=== PATIENT | female | born 1940 | race Caucasian/White ===

== ENCOUNTER → 2017-01-03 | Outpatient (CLI) | payer OTHER ==
[~2017-01-03] MED LIST: IOPAMIDOL (ISOVUE-300) 100 ML BTL IV ONE
== END ==
LOC: FIMAGING 08:33
PROVIDERS: ATTEND Internal Medicine Gastroenterology
DX: D37.8 Neoplasm of uncertain behavior of other specified digestive organs (principal); K86.2 Cyst of pancreas
CPT/HCPCS: 74178; Q9967

== ENCOUNTER → 2017-08-03 | Outpatient (CLI) | payer OTHER ==
[~2017-08-03] MED LIST changes: -IOPAMIDOL (ISOVUE-300) 100 ML BTL IV ONE; +IOPAMIDOL (ISOVUE-300) 100 ML BTL ONE
== END ==
LOC: FIMAGING 09:47
PROVIDERS: ATTEND Internal Medicine Gastroenterology
DX: K86.9 Disease of pancreas, unspecified (principal)
CPT/HCPCS: 74160; Q9967

== ENCOUNTER → 2017-08-10 | Outpatient (CLI) | payer OTHER | LOC: FIMAGING 09:34 | PROVIDERS: ATTEND Internal Medicine | DX: Z12.31 Encounter for screening mammogram for malignant neoplasm of breast (principal) | CPT/HCPCS: G0202 ==

== ENCOUNTER 2017-08-27 14:56 | Inpatient (IN) | payer OTHER ==
--- NOTE | 2017-08-27 15:09 | EDPHY ---
H & P Stated Complaint: headache and confusion Time Seen by Provider: 08/27/17 15:08 HPI/ROS: CHIEF COMPLAINT: Confusion HISTORY OF PRESENT ILLNESS: The patient presents to the ED with a 1 day history of confusion. The patient's ex- reports that she appears to have a expressive aphasia which is developed over the past day. The patient reportedly did fall and strike her head 2 weeks ago. She has had a right-sided headache since that time. The patient is not anticoagulated. The patient denies any focal numbness or weakness. The patient does have a history of diabetes. The patient denies any fever, cough or congestion. She does have chronic urinary incontinence. The patient is status post Botox injection her bladder approximately 3 weeks ago. She had been on Cipro several days postprocedure. REVIEW OF SYSTEMS: A comprehensive 10 point review of systems is otherwise negative aside from elements mentioned in the history of present illness. Source: Patient - Personal History Current Tetanus/Diphtheria Vaccine: Yes Current Tetanus Diphtheria and Acellular Pertussis (TDAP): Yes Tetanus Vaccine Date: 2009 - Medical/Surgical History Hx Asthma: No Hx Chronic Respiratory Disease: No Hx Diabetes: Yes Hx Cardiac Disease: No Hx Renal Disease: No Hx Cirrhosis: No Hx Alcoholism: No Hx HIV/AIDS: No Hx Splenectomy or Spleen Trauma: No - Social History Smoking Status: Never smoked - Physical Exam Exam: General Appearance: Alert, no distress Eyes: Pupils equal and round no pallor or injection ENT, Mouth: Mucous membranes moist Respiratory: There are no retractions, lungs are clear to auscultation Cardiovascular: Regular rate and rhythm Gastrointestinal: Abdomen is soft and nontender, no masses, bowel sounds normal Neurological: Alert and oriented x4, 5/5 strength all 4 extremities, questionable weakness noted in the right face, patient appears to have a mild expressive aphasia Skin: Warm and dry, no rashes Musculoskeletal: Neck is supple nontender Extremities: symmetrical, full range of motion Constitutional: Initial Vital Signs Temperature (C) 37 C 08/27/17 14:58 Heart Rate 79 08/27/17 14:58 Respiratory Rate 16 08/27/17 14:58 Blood Pressure 165/90 H 08/27/17 14:58 O2 Sat (%) 93 08/27/17 14:58 O2 Delivery Mode Room Air Allergies/Adverse Reactions: codeine [Codeine] Allergy (Unknown, Verified 09/22/09 08:46) UNK CUMIN Allergy (Uncoded 02/20/11 16:15) Anaphylaxis PETROS Allergy (Uncoded 02/20/11 16:14) Anaphylaxis NUTS Allergy (Uncoded 02/20/11 16:15) Anaphylaxis PAPYA Allergy (Uncoded 02/20/11 16:14) Anaphylaxis Home Medications: Medication Instructions Recorded Ciprofloxacin [Cipro 500 mg] 500 mg PO BID 7 Days tab 06/04/10 Coumadin 06/04/10 GABAPENTIN 06/04/10 GLYBURIDE 06/04/10 METFORMIN HCL 06/04/10 ONGLYZA 06/04/10 Percocet 06/04/10 Medical Decision Making - Diagnostics EKG Interpretation: EKG: Complete interpretation has been separately recorded in the [facility] archive. Summary impression: Sinus rhythm, rate 76 Imaging Results: Imaging Impressions Head CT 08/27/17 15:22 Impression: Senescent features, with no acute intracranial abnormality identified on this unenhanced CT evaluation. If there is further clinical concern regarding the patient's symptoms, MR imaging is suggested, if not otherwise contraindicated. Findings were discussed with Sim Persaud MD at 16:56, on 08/27/2017. Head CTA 08/27/17 15:22 Impression: 1. There is atherosclerotic calcific plaque involving the carotid bulbs and bifurcations, right greater than left; however, there is no hemodynamically significant ICA stenosis. 2. Patent vertebral arteries. CT ANGIOGRAPHY OF THE BRAIN: The major vessels of the [place] are well visualized, and there is no aneurysm, vascular malformation, flow-limiting stenosis, or acute occlusion identified. The distal cervical, petrous, cavernous , and supraclinoid portions of the internal carotid arteries are patent. There is atherosclerotic calcification associated with the parasellar portions of the internal carotid arteries. The A1 and A2 segments are patent as are the M1, M2, and M3 trifurcation vessels. With regards to the posterior circulation, the distal vertebral arteries are patent. The posterior inferior cerebellar arteries , vertebrobasilar confluence, basilar artery, superior cerebellar arteries, and the posterior cerebral arteries are patent. 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 There is limited assessment of the dural venous sinuses which are growth grossly unremarkable. Impression: 1. Atherosclerotic calcification associated with the parasellar portions of the internal carotid arteries. 2. There is no hemodynamically significant stenosis, intra-arterial thrombus, aneurysm, or vascular malformation identified. CT Source Data: The lung apices are clear. There is some minimal peribronchial thickening. The visualized superior mediastinal structures are unremarkable. There is moderately advanced degenerative disk space narrowing at C4-C5. There is also moderate right neural foraminal stenosis at this level secondary to uncovertebral degenerative spondylosis. The visualized prevertebral soft tissues are normal. There are some senescent features identified intracranially. Measurement of carotid stenosis is based on the residual internal carotid diameter with [place] Symptomatic Carotid Endarterectomy Trial (NASCET) based stenosis levels. Findings were discussed with Sim Persaud MD at 17:15, on 08/27/2017. Neck CTA 08/27/17 15:22 Impression: 1. There is atherosclerotic calcific plaque involving the carotid bulbs and bifurcations, right greater than left; however, there is no hemodynamically significant ICA stenosis. 2. Patent vertebral arteries. CT ANGIOGRAPHY OF THE BRAIN: The major vessels of the [place] are well visualized, and there is no aneurysm, vascular malformation, flow-limiting stenosis, or acute occlusion identified. The distal cervical, petrous, cavernous , and supraclinoid portions of the internal carotid arteries are patent. There is atherosclerotic calcification associated with the parasellar portions of the internal carotid arteries. The A1 and A2 segments are patent as are the M1, M2, and M3 trifurcation vessels. With regards to the posterior circulation, the distal vertebral arteries are patent. The posterior inferior cerebellar arteries , vertebrobasilar confluence, basilar artery, superior cerebellar arteries, and the posterior cerebral arteries are patent. 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 There is limited assessment of the dural venous sinuses which are growth grossly unremarkable. Impression: 1. Atherosclerotic calcification associated with the parasellar portions of the internal carotid arteries. 2. There is no hemodynamically significant stenosis, intra-arterial thrombus, aneurysm, or vascular malformation identified. CT Source Data: The lung apices are clear. There is some minimal peribronchial thickening. The visualized superior mediastinal structures are unremarkable. There is moderately advanced degenerative disk space narrowing at C4-C5. There is also moderate right neural foraminal stenosis at this level secondary to uncovertebral degenerative spondylosis. The visualized prevertebral soft tissues are normal. There are some senescent features identified intracranially. Measurement of carotid stenosis is based on the residual internal carotid diameter with [place] Symptomatic Carotid Endarterectomy Trial (NASCET) based stenosis levels. Findings were discussed with Sim Persaud MD at 17:15, on 08/27/2017. Brain MRI 08/27/17 16:30 Impression: Senescent features, with no MR evidence of an acute or subacute infarct. Findings were discussed with Sim Persaud MD at 18:15, on 08/27/2017. ED Course/Re-evaluation: The patient presents the ED with acute confusion and possible expressive aphasia. The patient was taken for noncontrast head CT scan given her history of fall and headache which demonstrates no evidence of hemorrhage or traumatic injury. Atrophy is noted. CTA of the head neck are normal. The patient's urinalysis does demonstrate pyuria. A urine culture has been obtained. The patient will be started on ceftriaxone. Given her neurologic complaints an MRI of the brain will be obtained to exclude an ischemic CVA. The patient has had symptoms for greater than 24 hr and does not a candidate for thrombolytics therapy. I do feel the patient should be admitted to the hospital given her abnormal mentation and possible aphasia. Consultation was made with Dr. Roger Whitt at 5:40 p.m. who will admit the patient. MRI of the brain is currently pending 6:30 p.m.: MRI of the brain demonstrates no evidence of an obvious stroke. The patient continues to have some mild word-finding difficulty. She is noted to be hyperglycemic without evidence of diabetic ketoacidosis. The patient will be admitted to the hospital and treated for her metabolic derangement and possible urinary tract infection. Differential Diagnosis: Differential diagnosis considered includes subdural hematoma, intracranial hemorrhage, ischemic stroke, hemorrhagic stroke, urinary tract infection, dehydration, medication side effect - Data Points Laboratory Results: Laboratory Results 08/27/17 15:15 08/27/17 15:15 08/27/17 08/27/17 08/27/17 15:40 15:15 15:15 WBC RBC Hgb POC Hgb 15.0 gm/dL gm/dL (12.6-16.3) Hct POC Hct 44 % % (38-47) MCV MCH MCHC RDW Plt Count MPV Neut % (Auto) Lymph % (Auto) Robertson % (Auto) Eos % (Auto) Baso % (Auto) Nucleat RBC Rel Count Absolute Neuts (auto) Absolute Lymphs (auto) Absolute Monos (auto) Absolute Eos (auto) Absolute Basos (auto) Absolute Nucleated RBC Immature Gran % Immature Gran # POC Sodium 137 mEq/L mEq/L (134-144) Sodium POC Potassium 4.2 mEq/L mEq/L (3.3-5.0) Potassium POC Chloride 100 mEq/L mEq/L (97-110) Chloride Carbon Dioxide Anion Gap POC BUN < 3 mg/dL L mg/dL (7-23) BUN Creatinine POC Creatinine 0.4 mg/dL L mg/dL (0.6-1.0) Estimated GFR Glucose POC Glucose 454 mg/dL H mg/dL (70-100) Calcium Total Bilirubin Pending Conjugated Bilirubin Pending Unconjugated Bilirubin Pending AST Pending ALT Pending Alkaline Phosphatase Pending Troponin I Pending Total Protein Pending Albumin Pending Procalcitonin Pending TSH Pending Urine Color YELLOW Urine Appearance MODERATELY TURBID Urine pH 7.0 (5.0-7.5) Ur Specific [place] 1.030 (1.002-1.030) Urine Protein NEGATIVE (NEGATIVE) Urine Ketones NEGATIVE (NEGATIVE) Urine Blood NEGATIVE (NEGATIVE) Urine Nitrate NEGATIVE (NEGATIVE) Urine Bilirubin NEGATIVE (NEGATIVE) Urine Urobilinogen NEGATIVE EU EU (0.2-1.0) Ur Leukocyte Esterase NEGATIVE (NEGATIVE) Urine RBC NONE SEEN /hpf /hpf (0-3) Urine WBC 15-25 /hpf H /hpf (0-3) Ur Epithelial Cells TRACE /lpf /lpf (NONE-1+) Urine Mucus TRACE /lpf /lpf (NONE-1+) Urine Yeast PRESENT /hpf /hpf (NONE SEEN) Urine Glucose 3+ H (NEGATIVE) 08/27/17 08/27/17 15:15 15:15 WBC 6.60 10^3/uL 10^3/uL (3.80-9.50) RBC 5.12 10^6/uL 10^6/uL (4.18-5.33) Hgb 14.6 g/dL g/dL (12.6-16.3) POC Hgb Hct 42.8 % % (38.0-47.0) POC Hct MCV 83.6 fL fL (81.5-99.8) MCH 28.5 pg pg (27.9-34.1) MCHC 34.1 g/dL g/dL (32.4-36.7) RDW 12.7 % % (11.5-15.2) Plt Count 281 10^3/uL 10^3/uL (150-400) MPV 10.1 fL fL (8.7-11.7) Neut % (Auto) 51.2 % % (39.3-74.2) Lymph % (Auto) 39.8 % % (15.0-45.0) Robertson % (Auto) 6.1 % % (4.5-13.0) Eos % (Auto) 1.8 % % (0.6-7.6) Baso % (Auto) 0.8 % % (0.3-1.7) Nucleat RBC Rel Count 0.0 % % (0.0-0.2) Absolute Neuts (auto) 3.38 10^3/uL 10^3/uL (1.70-6.50) Absolute Lymphs (auto) 2.63 10^3/uL 10^3/uL (1.00-3.00) Absolute Monos (auto) 0.40 10^3/uL 10^3/uL (0.30-0.80) Absolute Eos (auto) 0.12 10^3/uL 10^3/uL (0.03-0.40) Absolute Basos (auto) 0.05 10^3/uL 10^3/uL (0.02-0.10) Absolute Nucleated RBC 0.00 10^3/uL 10^3/uL (0-0.01) Immature Gran % 0.3 % % (0.0-1.1) Immature Gran # 0.02 10^3/uL 10^3/uL (0.00-0.10) POC Sodium Sodium 136 mEq/L mEq/L (134-144) POC Potassium Potassium 4.4 mEq/L mEq/L (3.5-5.2) POC Chloride Chloride 102 mEq/L mEq/L (97-110) Carbon Dioxide 24 mEq/l mEq/l (22-31) Anion Gap 10 mEq/L mEq/L (8-16) POC BUN BUN 3 mg/dL L mg/dL (7-23) Creatinine 0.5 mg/dL L mg/dL (0.6-1.0) POC Creatinine Estimated GFR > 60 Glucose 451 mg/dL H mg/dL (70-100) POC Glucose Calcium 9.0 mg/dL mg/dL (8.5-10.4) Total Bilirubin Conjugated Bilirubin Unconjugated Bilirubin AST ALT Alkaline Phosphatase Troponin I Total Protein Albumin Procalcitonin TSH Urine Color Urine Appearance Urine pH Ur Specific [place] Urine Protein Urine Ketones Urine Blood Urine Nitrate Urine Bilirubin Urine Urobilinogen Ur Leukocyte Esterase Urine RBC Urine WBC Ur Epithelial Cells Urine Mucus Urine Yeast Urine Glucose Medications Given: Discontinued Medications Ceftriaxone Sodium/Dextrose (Rocephin 1 Gm (Premix)) 50 mls @ 100 mls/hr IV EDNOW ONE PRN Reason: Protocol Stop: 08/27/17 17:52 Last Admin: 08/27/17 17:54 Dose: 50 mls Point of Care Test Results: 08/27/17 15:15 POC Sodium 137 POC Potassium 4.2 POC Chloride 100 POC BUN < 3 L POC Creatinine 0.4 L POC Glucose 454 H Departure - Departure Disposition: [facility] Inpatient Acute Clinical Impression: Hyperglycemia, Altered mental status, Pyuria Condition: Fair
[2017-08-27] MEDS ORDERED: IOPAMIDOL (ISOVUE 370) 100 ML BTL IV ONE (15:31)
[2017-08-27 15:42] LABS: PLATELET COUNT 281 10^3/uL (150-400)
--- NOTE | 2017-08-27 15:45 | CPEKG ---
Heart Rate: 76 RR Interval: 789 P-R Interval: 168 QRSD Interval: 82 QT Interval: 392 QTC Interval: 441 P [place]: 65 QRS [place]: 26 T Wave [place]: 50 EKG Severity - ABNORMAL ECG - EKG Impression: SINUS RHYTHM EKG Impression: CONSIDER LEFT VENTRICULAR HYPERTROPHY Electronically Signed By: Sim Persaud 27-Aug-2017 16:07:07
[2017-08-27] MEDS ORDERED: D50W 25 GM/50 ML SYR IVP PRN (18:07)
[2017-08-27] MEDS ORDERED: ACETAMINOPHEN 325 MG TAB PO PRN (18:20)
[2017-08-27] MEDS ORDERED: LISINOPRIL 10 MG TAB PO SCH (18:30)
[2017-08-27] MEDS: 1/2 NS 1,000 ML IV SCH (18:44)
--- NOTE | 2017-08-27 18:55 | GHP ---
[f rep st] HISTORY AND PHYSICAL DATE OF ADMISSION: 08/27/2017 CHIEF COMPLAINT: Confusion. HISTORY OF PRESENT ILLNESS: This is a 77-year-old female, brought in by her ex- for confusion . This has probably been going on for a few weeks as she is planning on moving to [place] soon, clementsmadina lazaro, got acutely worse in the last day. They called her PCP, Dr. Daley, who recommended that s he present to the emergency department. She currently has some questionable chest pain though her hi story on this seems somewhat unreliable. Recent history notable for having some incontinence. She r eceived a Botox injection by Dr. Pacheco 2 weeks ago for which she received perioperative ciprofloxacin . Her blood pressure is higher than normal. It is unclear if she has been taking her antihypertensi ve, she may be on lisinopril. She believes that she did not take any of her antihyperglycemics this morning. She fell about 2 weeks ago, hit her head, is saying that she has pain in her leg as well as her arm. She has not been taking any narcotic pain medicines for the last 6 years. She is not coug brina, has no other shortness of breath. She still does have some urinary incontinence. PAST MEDICAL/SURGICAL HISTORY: 1. Diabetes mellitus type 2. 2. Hypertension. 3. Varicose veins. 4. Hysterectomy. 5. Bladder suspension. 6. Botox bladder injection. MEDICATIONS: Please see medication reconciliation. ALLERGIES: Codeine, Coumadin, shannon, nuts, and papaya. FAMILY HISTORY: Reviewed and noncontributory. SOCIAL HISTORY: She is accompanied by her ex-. She is moving to [place]. 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 REVIEW OF SYSTEMS: A 10-point review of systems is conducted and is negative except per HPI. PHYSICAL EXAMINATION: VITAL SIGNS: Blood pressure 182/91, heart rate 80, respiration rate 16, satur ating 96% on room air. Temperature is 36.7. GENERAL: The patient is a very pleasant female who is comfortable, resting, in no acute distress. HEENT: Shows her to be normocephalic, atraumatic. CARD IOVASCULAR: A regular rate and rhythm. No murmurs, rubs, or gallops. PULMONARY: Lungs clear to au scultation bilaterally. ABDOMEN: Soft, nontender, nondistended. SKIN: No rash. : No Hernandez. E XTREMITIES: No joint effusions. NEUROLOGIC: Shows her to be alert and oriented x3. She has some s low word finding difficulties though she is able to complete a short sentence with some prompting. S he has 5/5 motor in her upper and her lower extremities. Sensation to light touch is intact in the u pper and lower extremities. PSYCHIATRIC: A normal mood and affect. LABS: CBC is normal. Basic metabolic panel is normal. LFTs are normal. Troponin is pending. Proc alcitonin is pending. TSH is pending. Urinalysis shows 15-25 whites with 3+ glucose. DATA: 1. I discussed with Dr. Persaud. Will admit to med/surg. 2. I reviewed her brain MRI. This shows senescent features with nothing acute. 3. EKG, which I personally reviewed and interpreted, shows sinus rhythm. She has slow R-wave progre ssion. She has Q-waves in lead V1. There is nothing that appears acutely ischemic to me. 4. The head and neck CT angiogram shows atherosclerotic plaque. Arteries are patent. 5. Head CT which was done as a noncontrast study shows nothing acute. IMPRESSION AND PLAN: 1. Acute encephalopathy: I suspect that there is a chronic component. MRI imaging negative except for senescent features. Differential includes urinary tract infection, hypertensive, hyperglycemic. Given her urinary symptoms, will go ahead and treat urinary tract infection. I will treat her hyper tension as below, treat hyperglycemia as below. Also will check troponin given slow R-wave progressi on. I have requested blood cultures as well and a TSH. 2. Uncontrolled hypertension: She believes she is on lisinopril. Med rec is pending. I will give her a low dose of lisinopril now and follow this. 3. Diabetes with hyperglycemia: Will continue her oral antihyperglycemics, give her sliding scale. Will follow her sugars and attempt to correct these. 4. Possible urinary tract infection: Continue Rocephin. Check a procalcitonin. /[id number]/MODL
[2017-08-27] MEDS ORDERED: INSULIN GLARGINE 100 UNITS/ML SYRINGE SC SCH (21:00)
[2017-08-27] MEDS ORDERED: INSULIN LISPRO 100 UNIT/ML SC ONE (21:54)
[2017-08-28] MEDS ORDERED: INSULIN GLULISINE 15 UNIT SQ SCH (08:00)
[2017-08-28] MEDS: 1/2 NS 1,000 ML IV SCH (08:14)
[2017-08-28] MEDS: ENOXAPARIN 40 MG/0.4 ML SYR SC SCH (08:48)
[2017-08-28] MEDS: LISINOPRIL 20 MG TAB PO SCH (08:49)
[2017-08-28] MEDS: ATORVASTATIN CALCIUM 20 MG TAB PO SCH (08:49)
[2017-08-28] MEDS: ASPIRIN 325 MG TAB PO SCH (08:49)
[2017-08-28] MEDS: INSULIN LISPRO 100 UNIT/ML SC SCH ×3 (08:53→17:48)
--- NOTE | 2017-08-28 16:14 | SOAPPROG ---
SOAP Progress Note Assessment/Plan: acute encephalopathy (neg mri/CT/CTA for acute issues, some atherosclerosis/age changes) -at baseline per ex this AM -concern from staff re safety at home still (see PT/OT evals) -ucx with yeast, no bacteria but improved with abx, so suggest continue x 3- 5 days -diflucan ordered -bd cx pending -re-eval in AM, likely home with HHC as refusing SNF/rehab at this point -CM assisting also Type 2 DM -high glucoses, covering with SSI, increase to standard -increase lantus -holding metformin bc of recent imaging studies decreased mobility/instability -revwd pt/ot recs -see above FULL CODE DISPO- likely discharge in AM PCP-Edi Warren Subjective: Says feels 'better/back to normal' and ex agrees. Can't remember much of yesterday. No CP/SOB/MEHTA/abd pain. No recent fever/illness. Objective: Vital Signs Temp Pulse Resp BP Pulse Ox 97.6 F 80 17 136/65 H 95 08/28/17 15:15 08/28/17 15:15 08/28/17 15:15 08/28/17 15:15 08/28/17 15:15 Laboratory Results 08/28/17 09:12 08/28/17 12:25 08/27/17 08/28/17 08/29/17 11:59 11:59 11:59 Intake Total 100 Balance 100 - Time Spent With Patient Time Spent With Patient: 45 - Pending Discharge Pending Discharge Within 24 Hours: Yes Pending Discharge Date: 08/29/17 Pending Discharge Time: 11:00 Physical Exam - Physical Exam General Appearance: alert, no apparent distress Respiratory: lungs clear, normal breath sounds, No respiratory distress Cardiac/Chest: regular rate, rhythm, No edema Abdomen: non-tender, soft, No distended, No guarding Skin: warm/dry Neuro/Psych: alert, normal mood/affect, cognition abnormalities (somewhat tangential, but also very anxious to go home, 'lots of appts/things to do'), No speech abnormalities ICD10 Worksheet Patient Problems: Problems Problem Status Onset Altered mental status Acute Hyperglycemia Acute Pyuria Acute
[2017-08-28] MEDS: FLUCONAZOLE 100 MG TAB PO SCH (16:29)
--- NOTE | 2017-08-28 16:39 | ASMTCASEMG ---
Living Arrangements What is your living Answers: Alone arrangement? Who do you live with? Type Of Residence What kind of residence do Answers: House you live in? Discharge Plan Comments Coordination Status Comments Notes: Pt is a 77 y/o female admitted for AMS and after having more falls. CM met w/ pt for dispo planning. Pt reports that her ex Luis is very supportive. Pt reports that the plan is for her to eventually transfer to [place] because she doesn't want to burden Luis. CM met w/ Luis and spoke w/ him. OT is recommending SNf. PT is recommending HC. Pt reports that she is not interested in a SNF but agreeable to HC. Pt does not have a preference for HC as long as it is covered under her [employer]. [facility] is able to accept. Zarina from [facility] called pt and she reports that she is not interested in HC at this time. CM requested that Zarina call pts ex to speak to him. CM to follow. Plan: HC; PT/OT Date Signed: 08/28/2017 04:39 PM Electronically Signed By:MARII Dixon
[2017-08-28] MEDS ORDERED: INSULIN GLARGINE 100 UNITS/ML SYRINGE SC SCH (18:27)
[2017-08-28 22:55] VITALS: RESP 16
[2017-08-29] MEDS: INSULIN LISPRO 100 UNIT/ML SC SCH ×2 (07:49→12:17)
--- NOTE | 2017-08-29 08:09 | HOSPPROG ---
Hospitalist Progress Note Assessment/Plan: #Acute on chronic encephalopathy -resolved. Likely due to hyperglycemia. CT, MRI negative #Uncontrolled DM: increased glargine to 50units. Spoke with PCP and likely not compliant with insulin at home. 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 Has PCP appt this afternoon Subjective: no fever, dysuria Objective: Vital Signs Temp Pulse Resp BP Pulse Ox 36.6 C 78 16 144/80 H 96 08/29/17 07:40 08/29/17 07:40 08/29/17 07:40 08/29/17 07:40 08/29/17 07:40 Laboratory Results 08/29/17 04:38 08/28/17 08/29/17 08/30/17 05:59 05:59 05:59 Intake Total 1450 Balance 1450 - Physical Exam Constitutional: no apparent distress, obese Eyes: PERRL Ears, Nose, Mouth, Throat: moist mucous membranes Cardiovascular: regular rate and rhythym Respiratory: no respiratory distress, no rales or rhonchi Gastrointestinal: normoactive bowel sounds, soft, non-tender abdomen Genitourinary: no bladder fullness Skin: warm Musculoskeletal: full muscle strength Neurologic: AAOx3, CN II-XII Intact Psychiatric: interacting appropriately ICD10 Worksheet Patient Problems: Problems Problem Status Onset Altered mental status Acute Hyperglycemia Acute Pyuria Acute
[2017-08-29] MEDS: ENOXAPARIN 40 MG/0.4 ML SYR SC SCH (09:07)
[2017-08-29] MEDS: ASPIRIN 325 MG TAB PO SCH (09:08)
[2017-08-29] MEDS: LISINOPRIL 20 MG TAB PO SCH (09:08)
[2017-08-29] MEDS: ATORVASTATIN CALCIUM 20 MG TAB PO SCH (09:08)
[2017-08-29] MEDS: FLUCONAZOLE 100 MG TAB PO SCH (09:10)
[2017-08-29 12:07] VITALS: BP 130/69; PULSE 75; TEMP 98; O2SAT 75
--- NOTE | 2017-08-29 14:23 | GDS ---
[f rep st] DISCHARGE SUMMARY DISCHARGE DIAGNOSES: 1. Acute on possible chronic encephalopathy. 2. Uncontrolled diabetes. 3. Decreased mobility. 4. Pancreatic mass HISTORY OF PRESENT ILLNESS: A 77-year-old female with history of diabetes on insulin, hypertension, was brought in by her ex- with acute confusion. Sounds like this confusion has been gradual for the past few weeks, and was planning on moving to [place] soon; however, it was significantly worse the day prior to admission. They called her PCP, Dr. Daley, who recommended she come to the ER. She had some questionable chest pain, but her history was unreliable. She received a Botox injection by Dr. Pacheco 2 weeks ago for urinary incontinence, and she received perioperative ciprofloxacin. Her blood pressure has been higher than normal. Did not take her insulin the morning of arrival. She fell 2 weeks ago and hit her head. She is not on narcotics. She does have difficulty seeing, and she is unclear if she has actually dosing her glargine correctly. HOSPITAL COURSE BY PROBLEM: 1. Acute suspected chronic encephalopathy: had extensive evaluation here including negative EKG, troponin. CTA and MRI brain are unrevealing. UA was positive only for Mattie. She was hyperglycemic and hypertensive at admission , which may have contributed. TSH was normal. Per her ex-, she is at her baseline. 2. Uncontrolled diabetes, sugars greater than 400 here. Again, she has difficulty seeing and is unclear of her home dosing. She has had lows in the past, but none recently. I expressed the importance of having home health or pre-drawn syringes to avoid medication error. I stressed to both she and her ex - that they need to talk to Dr. Daley about this issue. I did increase glargine to 50 units at night. 3. Deconditioning. She is stable for discharge per Physical Therapy. Recommend home care, but she is declining these services. Again, she needs to talk to Dr. Daley, as I think she would benefit from as much assistance at home as possible. 4. Pancreatic mass: being followed by Dr. Mccoy and surgeon in [place] [employer]. Monitoring with serial scans; would not likely recover from surgery 5. Goals: I spoke with her PCP, Dr. Daley who states it has been very difficult to manage her medical issues, because she is not compliant with meds. Family has tried to arrange home care and she refuses. They are trying to arrange placement with more care, but she has been refusing. NEW MEDICATIONS: Increase glargine to 50 units at night. FOLLOW UP: 1. Dr. Daley. 2. Consider home care nurse or PT. Time spent on DC: 60 min counseling patient and on treatment plan and discussing case with her PCP. /[id number]/MODL MTDD
--- NOTE | 2017-08-29 16:25 | ASMTCMCOM ---
CM Note CM Note Notes: Dc order received. Spoke with RN; recommending HHC RN for med management, as well as PT/OT. Met with pt & her former spouse, Luis ([phone]), to discuss. Pt refuses HHC. States she "has too much going on;" discussed benefits of HHC at length; pt still refuses. CM available if changes/needs. Date Signed: 08/29/2017 04:25 PM Electronically Signed By:Christa Peralta RN
--- NOTE | 2017-08-29 18:48 | PDMN ---
Medical Necessity Medical necessity: Patient transitioned to inpatient status for acute encephalopathy w/likely some chronic component plus acute Mattie UTI. LOS will be > 2 midnights for ongoing IV antibiotics, PT/OT.
== END 2017-08-29 14:15 | disposition home or self-care (01) | DRG 72 ==
LOC: F3E 18:30 → OBSVTOIN 08-28 16:24
PROVIDERS: ADMIT Student in an Organized Health Care Education/Training Program; ATTEND Student in an Organized Health Care Education/Training Program
DX: G93.40 Encephalopathy, unspecified (principal); E11.65 Type 2 diabetes mellitus with hyperglycemia; Z79.4 Long term (current) use of insulin; I10 Essential (primary) hypertension; K86.9 Disease of pancreas, unspecified; R32 Unspecified urinary incontinence; Z91.81 History of falling
CPT/HCPCS: 82947-QW; 97116-GP; 97161-GP; 97166-GO; G0378; J0696; J1650; J1815; Q9967

== ENCOUNTER → 2018-02-05 | Outpatient (CLI) | payer OTHER | LOC: CIMAGING 11:11 | PROVIDERS: ATTEND Internal Medicine Gastroenterology | DX: D37.8 Neoplasm of uncertain behavior of other specified digestive organs (principal) | CPT/HCPCS: 74177-PO; 82565-PO ==

== ENCOUNTER 2018-04-13 | Emergency (ER) | payer OTHER | END 2018-04-13 08:50 | disposition home or self-care (01) | DX: R32 Unspecified urinary incontinence (principal); Z87.440 Personal history of urinary (tract) infections; E11.9 Type 2 diabetes mellitus without complications; I10 Essential (primary) hypertension ==

== ENCOUNTER 2018-05-07 19:32 | Observation (INO) | payer OTHER ==
[2018-05-07] MEDS ORDERED: NS 500 ML IV ONE (19:42)
[2018-05-07] MEDS ORDERED: ONDANSETRON 4 MG/2 ML VIAL IVP ONE (20:19)
[2018-05-07] MEDS ORDERED: NS 1,000 ML IV ONE (20:19)
[2018-05-07] MEDS ORDERED: INSULIN REGULAR HUMAN 100 UNIT, COSIGN. REQUIRED 1 EA in NS 100 ML IV ONE (20:45)
--- NOTE | 2018-05-07 20:47 | EDPHY ---
H & P Stated Complaint: Diarrhea, altered LOC x 3days Time Seen by Provider: 05/07/18 19:41 HPI/ROS: This patient has a 2 day history of diarrhea with 3 bouts of loose watery stools yesterday and 2 bouts today. She took a dose of Imodium at around noon today and has not had any stool since that time. She also has a history of urinary incontinence and UTIs followed by Dr. Pacheco of Urology with Botox injections to treat urinary continence without improvement significant improvement per her ex- who assists with history. She takes Macrobid 100 mg once a day for frequent or chronic UTIs. She was recently started on Lantus insulin in addition to her metformin to try to control her diabetes as she had been running blood sugars as high as 400 at times but then down to 150s for other parts of the day. Tonight she vomited after dinner after poor appetite earlier in the day. She has ongoing mild nausea currently. Her ex- who accompanies her elsy also feels that her mentation is more sluggish than usual over the past 24 hr. He drove her here by private vehicle for evaluation of the symptoms. ROS: Constitutional: No fevers. HEENT: No recent URI symptoms. Neuro: She denies headache or focal neuro complaints. Pulmonary: No cough shortness of breath Cardiovascular: She did notice chest pain, palpitations or lightheadedness. GI: For over a month she has had intermittent fleeting sharp suprapubic pains last for about 30 sec at a time then resolved. No hematemesis. No bloody stools dark tarry stools or significant mucus in her stools. Integumentary: No skin rash or pallor Endocrine: Positive polyuria and polydipsia 10 point review of symptoms is performed and otherwise negative with exception of pertinent positives and negatives listed in HPI and ROS Source: Patient, Family (Patient's ex who cares for her provides details of history.) Exam Limitations: Other (Patient seems to have some baseline dementia and is slow to respond but answers questions appropriately.) - Personal History Current Tetanus/Diphtheria Vaccine: Yes Current Tetanus Diphtheria and Acellular Pertussis (TDAP): Yes Tetanus Vaccine Date: within 10 years - Medical/Surgical History Hx Asthma: No Hx Chronic Respiratory Disease: No Hx Diabetes: Yes Hx Cardiac Disease: No Hx Renal Disease: No Hx Cirrhosis: No Hx Alcoholism: No Hx HIV/AIDS: No Hx Splenectomy or Spleen Trauma: No Other PMH: diabetes type II, varicose veins, hysterectomy, bladder suspension, urinary incontinence s/p botox bladder injection (07/2017), fall related to hyperglycemia(07/2017), Pt denies HTN, "severe surgery with paralysis" 2009 - Social History Smoking Status: Never smoked Alcohol Use: Occasionally (Wine none recently) Drug Use: None - Physical Exam Exam: General Appearance: Pleasant elderly female Alert, no distress. Eyes: Pupils equal and round no pallor or injection. ENT, Mouth: Mucous membranes dry. I do not appreciate any free deep breath. Oropharynx reveals no erythema or exudates. No dysphonia. Respiratory: There are no retractions, lungs are clear to auscultation. Cardiovascular: Regular rate and rhythm. No murmur gallop or rub Gastrointestinal: Normoactive soft, positive suprapubic tenderness Back: Bilateral paraspinous muscular tenderness versus CVA tenderness the seems more consistent with muscular tenderness on exam. No midline tenderness. Neurological: GCS 15 no she is slow to respond to questions she seems to answer simple questions appropriately though she wonders a bit with her history. Skin: Warm and dry, no rashes. Musculoskeletal: Neck is supple nontender. Extremities are symmetrical, full range of motion. Psychiatric: Flat affect. Otherwise normal mood. Cooperative DIFFERENTIAL DIAGNOSIS: After history and physical exam differential diagnosis was considered for viral gastroenteritis, dehydration, UTI-cystitis versus pyelonephritis, myocardial ischemic disease, antibiotic associated diarrhea, C diff Constitutional: Initial Vital Signs Temperature (C) 37.3 C 05/07/18 19:45 Heart Rate 98 05/07/18 19:45 Respiratory Rate 16 05/07/18 19:45 Blood Pressure 192/96 H 05/07/18 19:45 O2 Sat (%) 93 05/07/18 19:45 O2 Delivery Mode Nasal Cannula O2 (L/minute) 2 Allergies/Adverse Reactions: codeine [Codeine] Allergy (Verified 04/13/18 07:44) Pt unsure of reaction fluorescein Allergy (Verified 04/13/18 07:44) Pt reports eye swelling papaya Allergy (Verified 04/13/18 07:44) Pt reports anaphylaxis CUMIN Allergy (Uncoded 04/13/18 07:44) Pt repors Anaphylaxis PETROS Allergy (Uncoded 04/13/18 07:44) Pt reports Anaphylaxis NUTS Allergy (Uncoded 04/13/18 07:44) Pt reports Anaphylaxis Home Medications: Medication Instructions Recorded Aspirin [Aspirin 325 mg (*)] 08/27/17 Cholecalciferol Vit D3 [Vitamin D3 08/27/17 (*)] Lisinopril [Zestril 20 mg (*)] 08/27/17 [place]-3 Fatty Acids [Fish Oil 1000 08/27/17 mg (*)] Simvastatin [Zocor] 08/27/17 metFORMIN HCL [Glucophage 1000 mg] 08/27/17 Insulin Glargine [Lantus 100 04/13/18 UNITS/ML (*)] Medical Decision Making - Diagnostics EKG Interpretation: 12 lead EKG performed at 8:25 p.m. Indication nausea vomiting question myocardial ischemia Sinus rhythm at 98 Intervals: Normal throughout [place]: P of 84, QRS of 35, T [address] segments: Normal throughout Overall assessment: sinus rhythm Imaging Results: Two view chest x-ray: No acute abnormalities by my interpretation Imaging: I viewed and interpreted images myself ED Course/Re-evaluation: IV normal saline bolus Zofran IV with resolution of nausea I ordered an insulin drip for the patient but apparently the insulin is currently out of stock. Stat enrollment clerk called to deliver insulin. We also called EMS to transfer the patient to [facility] I spoke with Dr. Oliverio Dacosta who accepts the patient. I also spoke with Dr. Fontenot who will be the admitting hospitalist she will be admitted to the ICU on her insulin drip. Patient started on insulin drip at 0.1 per kg per hour and will continue this insulin drip Discussion: Patient has significant hyperglycemia and mild change in mentation without ketosis on her breath or ketones in her urine and with a normal bicarb. Beta hydroxybutyrate in serum osmoles are pending, but I suspect that she has hyperglycemic hyperosmolar syndrome given her significant hyperglycemia and mild decreased mentation likely triggered by viral illness and/or UTI. No significant electrolyte abnormalities appreciated on her point of care tests. No evidence of pneumonia on her chest x-ray. Patient remained hemodynamically stable while here in the emergency department. I counseled the patient and her regarding her diagnosis and the treatment plan and some detail answered all their questions prior to her transfer Bedside critical care time: 20 min - Data Points Laboratory Results: Laboratory Results 05/07/18 20:02 05/07/18 05/07/18 05/07/18 22:16 21:08 20:20 WBC RBC Hgb Hct MCV MCH MCHC RDW Plt Count MPV Neut % (Auto) Lymph % (Auto) [place] % (Auto) Eos % (Auto) Baso % (Auto) Nucleat RBC Rel Count Absolute Neuts (auto) Absolute Lymphs (auto) Absolute Monos (auto) Absolute Eos (auto) Absolute Basos (auto) Absolute Nucleated RBC Immature Gran % Immature Gran # POC Blood Source VENOUS Patient Temperature 37.3 DEGREES DEGREES POC VBG pH 7.54 H (7.31-7.42) POC VBG pCO2 28 mmHg L mmHg (40-44) POC VBG pO2 51 mmHg H mmHg (35-40) POC VBG HCO3 24 mEq/L mEq/L (22-26) POC VBG Total CO2 25 mEq/L mEq/L (21-27) POC VBG Base Excess 2.0 mEq/L mEq/L (-2.5-2.5) POC Mix VBG O2 Sat 90 % H % (65-75) POC Sodium 140 mEq/L mEq/L (135-145) POC Potassium 4.3 mEq/L mEq/L (3.3-5.0) POC Chloride 93.0 mEq/L L mEq/L (97-110) POC Total CO2 27 mEq/L mEq/L (22-31) POC BUN 14 mg/dL mg/dL (7-23) POC Creatinine 0.3 mg/dL L mg/dL (0.6-1.0) POC Glucose 500 mg/dL H mg/dL 637 mg/dL H* mg/dL (70-100) (70-100) POC Lactic Acid Manjinder 2.3 mmol/L H mmol/L (0.7-2.1) POC Calcium 9.9 mg/dL mg/dL (8.5-10.4) 05/07/18 20:02 WBC 10.48 10^3/uL H 10^3/uL (3.80-9.50) RBC 4.72 10^6/uL 10^6/uL (4.18-5.33) Hgb 13.1 g/dL g/dL (12.6-16.3) Hct 38.8 % % (38.0-47.0) MCV 82.2 fL fL (81.5-99.8) MCH 27.8 pg L pg (27.9-34.1) MCHC 33.8 g/dL g/dL (32.4-36.7) RDW 12.1 % % (11.5-15.2) Plt Count 319 10^3/uL 10^3/uL (150-400) MPV 10.0 fL fL (8.7-11.7) Neut % (Auto) 81.6 % H % (39.3-74.2) Lymph % (Auto) 12.6 % L % (15.0-45.0) [place] % (Auto) 4.9 % % (4.5-13.0) Eos % (Auto) 0.2 % L % (0.6-7.6) Baso % (Auto) 0.4 % % (0.3-1.7) Nucleat RBC Rel Count 0.0 % % (0.0-0.2) Absolute Neuts (auto) 8.56 10^3/uL H 10^3/uL (1.70-6.50) Absolute Lymphs (auto) 1.32 10^3/uL 10^3/uL (1.00-3.00) Absolute Monos (auto) 0.51 10^3/uL 10^3/uL (0.30-0.80) Absolute Eos (auto) 0.02 10^3/uL L 10^3/uL (0.03-0.40) Absolute Basos (auto) 0.04 10^3/uL 10^3/uL (0.02-0.10) Absolute Nucleated RBC 0.00 10^3/uL 10^3/uL (0-0.01) Immature Gran % 0.3 % % (0.0-1.1) Immature Gran # 0.03 10^3/uL 10^3/uL (0.00-0.10) POC Blood Source Patient Temperature POC VBG pH POC VBG pCO2 POC VBG pO2 POC VBG HCO3 POC VBG Total CO2 POC VBG Base Excess POC Mix VBG O2 Sat POC Sodium POC Potassium POC Chloride POC Total CO2 POC BUN POC Creatinine POC Glucose POC Lactic Acid Manjinder POC Calcium Venous lactate is mildly elevated 2.3 Urine dip results showed no ketones. Trace leuks and trace blood. Negative nitrates no other positive findings. Medications Given: Discontinued Medications Sodium Chloride (Ns) 500 mls @ 0 mls/hr IV ONCE ONE; Wide Open PRN Reason: Protocol Stop: 05/07/18 19:43 Last Admin: 05/07/18 19:56 Dose: 500 mls Sodium Chloride (Ns) 1,000 mls @ 0 mls/hr IV ONCE ONE; Wide Open PRN Reason: Protocol Stop: 05/07/18 20:20 Last Admin: 05/07/18 20:47 Dose: 1,000 mls Insulin Human Regular 100 unit / Miscellaneous Medication 1 ea/ Sodium Chloride 101 mls @ 0 mls/hr IV EDNOW ONE; Per Protocol PRN Reason: Protocol Stop: 05/07/18 20:46 Last Admin: 05/07/18 22:32 Dose: 101 mls Ondansetron HCl (Zofran) 4 mg IVP EDNOW ONE Stop: 05/07/18 20:20 Last Admin: 05/07/18 20:56 Dose: 4 mg Point of Care Test Results: Chemistry 05/07/18 05/07/18 22:16 20:20 POC Sodium 140 mEq/L mEq/L (135-145) POC Potassium 4.3 mEq/L mEq/L (3.3-5.0) POC Chloride 93.0 mEq/L L mEq/L (97-110) POC Total CO2 27 mEq/L mEq/L (22-31) POC BUN 14 mg/dL mg/dL (7-23) POC Creatinine 0.3 mg/dL L mg/dL (0.6-1.0) POC Glucose 500 mg/dL H mg/dL 637 mg/dL H* mg/dL (70-100) (70-100) POC Calcium 9.9 mg/dL mg/dL (8.5-10.4) Blood Gas/Lactic Acid-Arterial 05/07/18 21:08 POC Blood Source VENOUS Blood Gas/Lactic Acid-Venous 05/07/18 21:08 POC VBG pH 7.54 H (7.31-7.42) POC VBG pCO2 28 mmHg L mmHg (40-44) POC VBG pO2 51 mmHg H mmHg (35-40) POC VBG HCO3 24 mEq/L mEq/L (22-26) POC VBG Total CO2 25 mEq/L mEq/L (21-27) POC VBG Base Excess 2.0 mEq/L mEq/L (-2.5-2.5) POC Mix VBG O2 Sat 90 % H % (65-75) POC Lactic Acid Manjinder 2.3 mmol/L H mmol/L (0.7-2.1) Urine Dip Collection Date 05/07/18 Collection Time 20:02 Specific [place] (1.002-1.030) 1.010 PH (5.0-7.5) 7.5 Leukocytes (Negative) Trace Nitrites (Negative) Negative Protein (Negative) Negative Glucose (Negative) 3+ Ketones (Negative) Negative Urobilnogen (0.2-1.0 EU) 0.2 Bilirubin (Negative) Negative Blood (Negative) Trace Departure - Departure Disposition: [facility] Inpatient Acute Clinical Impression: hyperglycemic hyperosmolar syndrome Vomiting Qualifiers: Vomiting type: unspecified Vomiting Intractability: non-intractable Nausea presence: with nausea Qualified Code(s): R11.2 - Nausea with vomiting, unspecified Diarrhea Qualifiers: Diarrhea type: unspecified type Qualified Code(s): R19.7 - Diarrhea, unspecified Clinical Impression: (Ruled Out): DKA (diabetic ketoacidoses) Condition: Serious Referrals: Ady Daley MD [Primary Care Provider] - As per Instructions
--- NOTE | 2018-05-07 21:59 | CPEKG ---
Test Reason : OPEN Blood Pressure : / mmHG Vent. Rate : 098 BPM Atrial Rate : 099 BPM P-R Int : 184 ms QRS Dur : 085 ms QT Int : 339 ms P-R-T Axes : 084 035 035 degrees QTc Int : 433 ms Sinus rhythm Probable left atrial enlargement Confirmed by Manuel Power ([id number]) on 05/07/2018 9:58:49 PM Referred By: Confirmed By:Manuel Power
[2018-05-07 22:07] LABS: PLATELET COUNT 319 10^3/uL (150-400)
[2018-05-07] MEDS ORDERED: NS 100 ML BAG IV ONE (22:17)
[2018-05-07] MEDS ORDERED: ONDANSETRON 4 MG/2 ML VIAL IVP PRN (22:51)
[2018-05-07] MEDS ORDERED: ONDANSETRON DISINTEGRATING 4 MG TAB PO PRN (22:51)
[2018-05-07] MEDS ORDERED: D50W 25 GM/50 ML SYR IVP PRN (22:54)
[2018-05-07] MEDS ORDERED: NS 1,000 ML IV SCH (23:00)
[2018-05-07] MEDS ORDERED: D5W 1,000 ML IV SCH (23:45)
[2018-05-07] MEDS ORDERED: INSULIN REGULAR HUMAN 100 UNIT in NS 100 ML IV SCH (23:45)
--- NOTE | 2018-05-08 00:38 | PDGENHP ---
History and Physical - Chief Complaint Confusion - History of Present Illness 77 yo F w/ hx of IDDM, HTN, and pancreatic mass presents with altered mental status. Her ex- tells me that she has been somewhat confused for about 2 days. In addition, her baseline urinary incontinence has worsened significantly. Also, she has had 3 loose bowel movements over the last day. She denies any other infectious symptoms such as fever, sore throat, cough, abdominal pain, and dysuria. Upon arrival to the [facility] her BG was noted to be >600. Patient tells me she has been feeling very thirsty as well. Despite this she wells currently and denies any pain or other concerns. She is A&Ox2 to person and place on my evaluation. Her mentation is sluggish and her memory is mildly impaired. For diabetes management, which has been historically difficult for her, she uses Metformin twice daily and insulin degludec 32 units each afternoon. She was previously on a continuous glucose monitor but this was recently discontinued for unclear reasons. She was placed on an insulin gtt at the [facility] and transferred to [facility] for further management. Case discussed with ED physician Dr. Power, records reviewed in EMR. History Information - Allergies/Home Medication List Allergies/Adverse Reactions: codeine [Codeine] Allergy (Verified 04/13/18 07:44) Pt unsure of reaction fluorescein Allergy (Verified 04/13/18 07:44) Pt reports eye swelling papaya Allergy (Verified 04/13/18 07:44) Pt reports anaphylaxis CUMIN Allergy (Uncoded 04/13/18 07:44) Pt repors Anaphylaxis PETROS Allergy (Uncoded 04/13/18 07:44) Pt reports Anaphylaxis NUTS Allergy (Uncoded 04/13/18 07:44) Pt reports Anaphylaxis Home Medications: Aspirin [Aspirin 325 mg (*)] 08/27/17 [Last Taken Unknown] Cholecalciferol Vit D3 [Vitamin D3 (*)] 08/27/17 [Last Taken Unknown] Lisinopril [Zestril 20 mg (*)] 08/27/17 [Last Taken Unknown] [place]-3 Fatty Acids [Fish Oil 1000 mg (*)] 08/27/17 [Last Taken Unknown] Simvastatin [Zocor] 08/27/17 [Last Taken Unknown] metFORMIN HCL [Glucophage 1000 mg] 08/27/17 [Last Taken Unknown] Insulin Glargine [Lantus 100 UNITS/ML (*)] 04/13/18 [Last Taken Unknown] I have personally reviewed and updated: family history, medical history - Past Medical History diabetes type 2, hypertension Additional medical history: Pancreatic mass - Surgical History Reports: hysterectomy, spinal surgery - Family History Positive for: cancer, CAD - Social History Smoking Status: Never smoked Alcohol Use: Occasionally (Wine none recently) Drug Use: None Review of Systems Review of Systems: ROS: 10pt was reviewed & negative except for what was stated in HPI & below Physical Exam Physical Exam: Temp Pulse Resp BP Pulse Ox 37.2 C 99 16 168/81 H 96 05/07/18 21:44 05/07/18 22:02 05/07/18 22:02 05/07/18 22:02 05/07/18 22:02 Constitutional: no apparent distress, not in pain Eyes: PERRL, anicteric sclera Ears, Nose, Mouth, Throat: no oral mucosal ulcers, dry mucous membranes Cardiovascular: regular rate and rhythym, systolic murmur Respiratory: no respiratory distress, clear to auscultation Gastrointestinal: normoactive bowel sounds, soft, non-tender abdomen Skin: warm, normal color Musculoskeletal: full muscle strength, no muscle tenderness Neurologic: CN II-XII Intact, other (A&Ox2) Psychiatric: interacting appropriately, not anxious Lab Data & Imaging Review 05/07/18 20:02 05/07/18 23:55 WBC 10.48 10^3/uL (3.80-9.50) H 05/07/18 20:02 RBC 4.72 10^6/uL (4.18-5.33) 05/07/18 20:02 Hgb 13.1 g/dL (12.6-16.3) 05/07/18 20:02 Hct 38.8 % (38.0-47.0) 05/07/18 20:02 MCV 82.2 fL (81.5-99.8) 05/07/18 20:02 MCH 27.8 pg (27.9-34.1) L 05/07/18 20:02 MCHC 33.8 g/dL (32.4-36.7) 05/07/18 20:02 RDW 12.1 % (11.5-15.2) 05/07/18 20:02 Plt Count 319 10^3/uL (150-400) 05/07/18 20:02 MPV 10.0 fL (8.7-11.7) 05/07/18 20:02 Neut % (Auto) 81.6 % (39.3-74.2) H 05/07/18 20:02 Lymph % (Auto) 12.6 % (15.0-45.0) L 05/07/18 20:02 [place] % (Auto) 4.9 % (4.5-13.0) 05/07/18 20:02 Eos % (Auto) 0.2 % (0.6-7.6) L 05/07/18 20:02 Baso % (Auto) 0.4 % (0.3-1.7) 05/07/18 20:02 Nucleat RBC Rel Count 0.0 % (0.0-0.2) 05/07/18 20:02 Absolute Neuts (auto) 8.56 10^3/uL (1.70-6.50) H 05/07/18 20:02 Absolute Lymphs (auto) 1.32 10^3/uL (1.00-3.00) 05/07/18 20:02 Absolute Monos (auto) 0.51 10^3/uL (0.30-0.80) 05/07/18 20:02 Absolute Eos (auto) 0.02 10^3/uL (0.03-0.40) L 05/07/18 20:02 Absolute Basos (auto) 0.04 10^3/uL (0.02-0.10) 05/07/18 20:02 Absolute Nucleated RBC 0.00 10^3/uL (0-0.01) 05/07/18 20:02 Immature Gran % 0.3 % (0.0-1.1) 05/07/18 20:02 Immature Gran # 0.03 10^3/uL (0.00-0.10) 05/07/18 20:02 POC Blood Source VENOUS 05/07/18 21:08 Puncture Site VENOUS 05/07/18 23:55 Patient Temperature 37.0 DEGREES 05/07/18 23:55 VBG pH 7.40 (7.31-7.42) 05/07/18 23:55 POC VBG pH 7.54 (7.31-7.42) H 05/07/18 21:08 POC VBG pCO2 28 mmHg (40-44) L 05/07/18 21:08 POC VBG pO2 51 mmHg (35-40) H 05/07/18 21:08 VBG HCO3 28 mEQ/L (22-26) H 05/07/18 23:55 POC VBG HCO3 24 mEq/L (22-26) 05/07/18 21:08 VBG Total CO2 30 mEq/L (21-27) H 05/07/18 23:55 POC VBG Total CO2 25 mEq/L (21-27) 05/07/18 21:08 VBG O2 Saturation 78 % (65-75) H 05/07/18 23:55 VBG Base Excess 3.2 mEq/L (-2.5-2.5) H 05/07/18 23:55 POC VBG Base Excess 2.0 mEq/L (-2.5-2.5) 05/07/18 21:08 Mixed VBG pCO2 47 mmHg (40-44) H 05/07/18 23:55 Mixed VBG pO2 46 mmHG (35-40) H 05/07/18 23:55 POC Mix VBG O2 Sat 90 % (65-75) H 05/07/18 21:08 POC Sodium 140 mEq/L (135-145) 05/07/18 20:20 POC Potassium 4.3 mEq/L (3.3-5.0) 05/07/18 20:20 POC Chloride 93.0 mEq/L (97-110) L 05/07/18 20:20 POC Total CO2 27 mEq/L (22-31) 05/07/18 20:20 POC BUN 14 mg/dL (7-23) 05/07/18 20:20 POC Creatinine 0.3 mg/dL (0.6-1.0) L 05/07/18 20:20 POC Glucose 251 mg/dL (70-100) H 05/08/18 00:02 POC Lactic Acid Manjinder 2.3 mmol/L (0.7-2.1) H 05/07/18 21:08 POC Calcium 9.9 mg/dL (8.5-10.4) 05/07/18 20:20 Imaging Review: Imaging Impressions Chest X-Ray 05/07/18 21:12 Impression: Bronchitis/airways disease. Otherwise negative. Visualized and Interpreted EKG results: Yes EKG Interpretation: Positive for: normal sinsus rhythm Assessment & Plan Assessment: 77 yo F w/ IDDM, HTN, and pancreatic mass presents with polyuria, polydipsia, and found to have severe hyperglycemia. Plan: 1. IDDM c/b severe hyperglycemia - BG >600 in the ED; unclear why blood glucose is so elevated despite her stated compliance with home insulin regimen. Her only possible infectious symptom is diarrhea, which will need to be investigated if persistent. As outpatient she manages BG with metformin 1000 mg BID and insulin degludec 32 u qPM. Her care seems greatly complicated by poor medical literacy and possible chronic encephalopathy. - BMP on admission here with no anion gap - BG now normal after a few hours of insulin gtt, will transition to basal/ bolus strategy now - GI PCR if diarrhea noted while here - Continue IVF overnight 2. Acute on chronic encephalopathy - Overall this appears mild and is likely related to #1. Review of previous records reveals some concern for underlying chronic encephalopathy. She is A&Ox2 on my evaluation. - Treat hyperglycemia as above - Avoid centrally acting medications 3. HTN - Continue home medications pending reconciliation. 4. Pancreatic mass - This is being followed conservatively as surgery has been deemed to not be an option. Diet - NPO while on insulin gtt Code - Full Ppx - LMWH Dispo - Admit under observation status
[2018-05-08 04:34] LABS: PLATELET COUNT 267 10^3/uL (150-400)
[2018-05-08] MEDS: INSULIN LISPRO 100 UNIT/ML SC SCH ×3 (07:49→17:44)
[2018-05-08] MEDS ORDERED: PNEUMOC 13-VAL CONJ-DIP CRM/PF 0.5 ML SYR IM ONE (09:22)
[2018-05-08] MEDS: ENOXAPARIN 40 MG/0.4 ML SYR SC SCH (10:17)
--- NOTE | 2018-05-08 11:30 | HOSPPROG ---
Hospitalist Progress Note Assessment/Plan: 77 yo F w/ IDDM, HTN, and pancreatic mass presents with polyuria, polydipsia, and found to have severe hyperglycemia. #Hyperglycemia with IDDM: Consistent with mild HHS. Now off insulin gtt and BG controlled. Unclear what precipitated this but similar admissions in past for same; PCP reports much difficulty with medication adherence, as evidenced by A1c 14.2% from 08/2017, and I suspect this may be culprit. - Glargine 32u qhs, SSI with achs BG checks - Follow up urine cx. Obtain GI PCR if develops diarrhea #Acute metabolic on chronic encephalopathy: Suspect precipitated by hyperglycemia and mental status now appears at baseline based on prior notes. Unclear etiology of chronic component; there are notes of cognitive issues dating back to 2009 however unclear if these were in setting of acute illness. Prior MRI with age-related atrophy but no significant vascular disease. Lab work in past unrevealing; had low titer + ELENI that is likely normal for age - Check B12, HIV to complete reversible dementia work up - Avoid centrally acting meds #HTN: Controlled, continue home meds. #Pancreatic mass: Chronic. On chart review, she has had 3 FNAs (11/2010, 02/2012, 12/2013) all of which have not shown malignant cells but rather benign pancreatic cyst/IPMN. Had CT 01/2018 with stable size. No plans for surgery. Unlikely to be contributing to elevated BG. #H/o provoked PE: Occurred in 2010 in setting of spinal surgery. Hypercoagulable work up at that time negative. Completed course of anticoagulation. Diet: diabetic diet Ppx: LMWH Dispo: Continue inpatient admission for management of glucose and monitoring of mental status. Ok to transfer to med/surg floor. She reportedly lives in assisted living and plan will be to discharge back there when medically ready. Subjective: Wanting to go home. Good appetite, ate breakfast. No stools. No fevers. Denies having urinary symptoms. Vomited last night but no further nausea. Objective: Vital Signs Temp Pulse Resp BP Pulse Ox 36.6 C 81 20 124/89 H 94 05/08/18 08:00 05/08/18 10:00 05/08/18 10:00 05/08/18 10:00 05/08/18 10:00 Laboratory Results 05/08/18 04:00 05/08/18 04:00 05/07/18 05/08/18 05/09/18 05:59 05:59 05:59 Intake Total 2294 Output Total 500 Balance 1794 - Physical Exam Constitutional: no apparent distress, appears nourished, not in pain Eyes: PERRL, anicteric sclera, EOMI Ears, Nose, Mouth, Throat: moist mucous membranes, hearing normal, ears appear normal, no oral mucosal ulcers Cardiovascular: regular rate and rhythym, no murmur, rub, or gallop Respiratory: no respiratory distress, no rales or rhonchi, clear to auscultation Gastrointestinal: normoactive bowel sounds, soft, non-tender abdomen, no palpable masses Genitourinary: carrillo in urethra Skin: no rashes or abrasions, no fluctuance, no induration Neurologic: CN II-XII Intact, other (alert and fully oriented but slow to respond to questions) Psychiatric: other (slow to respond, tangential thought processes but mostly appropriate) ICD10 Worksheet Patient Problems: Problems Problem Status Onset Diarrhea Acute Vomiting Acute Altered mental status Acute Dysuria Acute Hyperglycemia Acute Pyuria Acute Urinary incontinence Acute
[2018-05-08 16:56] LABS: HIV TYPE 1 AND 2 NEGATIVE (NEGATIVE)
[2018-05-08] MEDS: metFORMIN HCL 500 MG TAB PO SCH (17:44)
--- NOTE | 2018-05-08 18:07 | ASMTCASEMG ---
Living Arrangements What is your living Answers: Alone arrangement? Who do you live with? Type Of Residence What kind of residence do Answers: Assisted Living you live in? Type of Residence Facility Name Notes: [facility] Discharge Plan Comments Coordination Status Comments Notes: Patient is a 77yo female with a pancreatic mass presenting with polyuria, polydipsia, and severe hyperglycemia. Patient was admitted for acute chronic encephalopathy, hyperglycemia, HTN, pancreatic mass, diabetes. PT has been ordered. Some concern regarding patient having diarrhea, being followed to rule out infection.D/C plan TBD. CM will follow. Date Signed: 05/08/2018 11:44 AM Electronically Signed By:Sherice Farias LCSW
[2018-05-08] MEDS ORDERED: LISINOPRIL 20 MG TAB PO SCH (21:00)
[2018-05-08] MEDS ORDERED: INSULIN GLARGINE 100 UNITS/ML UNIT SC SCH (21:00)
[2018-05-08] MEDS: ACETAMINOPHEN 325 MG TAB PO PRN (23:06)
[2018-05-09] MEDS: ENOXAPARIN 40 MG/0.4 ML SYR SC SCH (08:17)
[2018-05-09] MEDS: INSULIN LISPRO 100 UNIT/ML SC SCH ×2 (08:18→12:48)
[2018-05-09] MEDS: metFORMIN HCL 500 MG TAB PO SCH (08:18)
[2018-05-09 12:07] VITALS: BP 121/65
--- NOTE | 2018-05-09 12:10 | ASMTLACE ---
LACE Length of stay for Answers: 2 days current admission Acuity / Level of Answers: No Care: Did the patient have an inpatient admission? Comorbidities - select Answers: Diabetes (uncontrolled or all that apply controlled) Opioid dependence / Chronic pain Other Notes: HTN # of Emergency department Answers: 1-2 visits in the last 6 months Score: 9 Date Signed: 05/09/2018 12:01 PM Electronically Signed By:Oliva Arthur RN
--- NOTE | 2018-05-09 12:12 | ASMTCMCOM ---
CM Note CM Note Notes: Met with pt and ex spouse Luis regarding home PT, pt politely declines. She states she has services available at [facility]. Pt will dc back to [facility] w/support of ex spouse. DC Plan: Independent Date Signed: 05/09/2018 12:04 PM Electronically Signed By:Oliva Arthur RN
[2018-05-09] MEDS: ACETAMINOPHEN 325 MG TAB PO PRN (13:11)
--- NOTE | 2018-05-09 16:32 | PDDCSUM ---
Discharge Summary Discharge Summary: Date of Admission: 05/08/2018 Date of Discharge: 05/09/2018 Disposition: discharged back to [facility] assisted living Discharge Diagnoses: 1. Hyperglycemia 2. Poorly controlled insulin dependent diabetes 3. Acute metabolic on chronic encephalopathy 4. Pancreatic mass, likely benign 5. HTN 6. H/o provoked PE numerous years ago, off anticoagulation Brief Hospital Course: 77 yo F w/ IDDM, HTN, and pancreatic mass presents with polyuria, polydipsia, altered mental status found to have severe hyperglycemia (>600) without acidemia or significant hyperosmolarity. It is unclear what precipitated her elevated sugars as work up, including infectious causes, was negative. Luis, her ex- and booster plant operator, reported adherence to her insulin regimen. She was briefly maintained on insulin gtt in ICU and transitioned to basal-bolus insulin. She was discharged on her home degludec 32u qhs. We discussed adding meal-time insulin coverage to her regimen but the patient plans to see her outsole scheduler tomorrow and we have decided to defer additional management to him. Her mental status improved to baseline with improvement in glucose. She does have a component of chronic encephalopathy although the etiology of this is unclear. She's had prior brain MRI and lab work up that was unrevealing. She lives in assisted living. Regarding her pancreatic mass, this has been biopsied several times in the past , she has had 3 FNAs (11/2010, 02/2012, 12/2013) all of which have not shown malignant cells but rather benign pancreatic cyst/IPMN. Had CT 01/2018 with stable size. No plans for surgery. Unlikely to be contributing to elevated BG. Medications: Please refer to EMR for complete list. Her nitrofurantoin was discontinued, otherwise no symptoms. Follow Up Plan: 1. To see outsole scheduler Dr Tony tomorrow to discuss long-term insulin plan Physical Exam: Vitals reviewed, normotensive and afebrile. Alert and oriented albeit slow to respond to some questions and with tangential thought processes at times. RRR without murmur on heart exam. Lungs clear. Abdomen soft and nontender. Legs without edema. Skin without rashes. No focal neurologic deficits.
[2018-05-09] MEDS ORDERED: ATORVASTATIN CALCIUM 20 MG TAB PO SCH (21:00)
== END 2018-05-09 13:50 | disposition home or self-care (01) ==
LOC: CED 19:32 → INTOOBSV 22:19 → F2N 22:19 → F3E 05-08 12:30
PROVIDERS: ADMIT Family Medicine; ATTEND Family Medicine
DX: E11.65 Type 2 diabetes mellitus with hyperglycemia (principal); G93.41 Metabolic encephalopathy; Z79.4 Long term (current) use of insulin; I10 Essential (primary) hypertension; K86.89 Other specified diseases of pancreas; Z87.440 Personal history of urinary (tract) infections; Z86.711 Personal history of pulmonary embolism; Z23 Encounter for immunization
CPT/HCPCS: 71046; 90670; 90686; 93005; 96361; 96365; 96366; 96372; 96375; 97116; 97161; 99285; G0008; G0009; G0378; J1650; J1815; J2405; 80048-PO; 82607-90; 83605-PO

== ENCOUNTER → 2018-09-12 | Outpatient (CLI) | payer OTHER | LOC: FIMAGING 10:17 | PROVIDERS: ATTEND Internal Medicine | DX: Z12.31 Encounter for screening mammogram for malignant neoplasm of breast (principal) ==

== ENCOUNTER 2018-12-06 13:25 | Inpatient (IN) | payer OTHER ==
--- NOTE | 2018-12-06 13:17 | EDPHY ---
H & P Time Seen by Provider: 12/06/18 13:28 Constitutional: Initial Vital Signs Heart Rate 87 12/06/18 13:35 Respiratory Rate 16 12/06/18 13:35 O2 Sat (%) 94 12/06/18 13:35 O2 Delivery Mode Room Air Allergies/Adverse Reactions: codeine [Codeine] Allergy (Verified 04/13/18 07:44) Pt unsure of reaction fluorescein Allergy (Verified 04/13/18 07:44) Pt reports eye swelling papaya Allergy (Verified 04/13/18 07:44) Pt reports anaphylaxis CUMIN Allergy (Uncoded 04/13/18 07:44) Pt repors Anaphylaxis PETROS Allergy (Uncoded 04/13/18 07:44) Pt reports Anaphylaxis NUTS Allergy (Uncoded 04/13/18 07:44) Pt reports Anaphylaxis Home Medications: Medication Instructions Recorded Aspirin [Aspirin 325 mg (*)] 325 mg PO HS 08/27/17 Lisinopril [Zestril 20 mg (*)] 20 mg PO HS 08/27/17 Simvastatin [Zocor] 40 mg PO HS 08/27/17 metFORMIN HCL [Glucophage 1000 mg] 1,000 mg PO BID 08/27/17 Cholecalciferol Vit D3 [Vitamin D3 2,000 units PO HS 05/08/18 2000 units tab (OTC)] Insulin Degludec [Tresiba 32 unit SQ DAILY18 05/08/18 Flextouch U-100] Medical Decision Making - Diagnostics Imaging: Discussed imaging studies w/ dietetic intern Radiologist, I viewed and interpreted images myself - Diagnostics Imaging Results: Imaging Impressions Head CT 12/06/18 13:33 Impression: No acute intracranial process. Age-appropriate generalized cerebral volume loss with sequela of chronic microvascular ischemic disease. Findings and recommendations discussed with Ayaz Norton MD at 1340 hour, 07/2019. ED Course/Re-evaluation: CHIEF COMPLAINT: Stroke alert HISTORY OF PRESENT ILLNESS: The patient is a 78 y/o female arriving via EMS as a stroke alert. Per EMS the patient was last seen normal at 12:30, 1 hour ago. Her intermediate staff noticed that the patient was not acting appropriately as she had "word salad". The patient then failed the speech portion of the FAST stroke exam. Upon arrival the patient states "I'm in the hospital". She is having difficulty stating the words she is thinking of. Per her med list she is not anticoagulated ; she does take 324mg PO Aspirin daily. Per her (who is POA), the patient has had several days of cloudy urine. Today the patient was quiet in the morning and then developed confused speech. He denies surgery, serious falls, or bleeding in the last 3 months. REVIEW OF SYSTEMS: Unable to determine secondary to patient's mental status. PHYSICAL EXAM: HR, BP, O2 Sat, RR. Temp noted General Appearance: Alert, well hydrated, and non-toxic appearing. Head: Atraumatic without scalp tenderness or obvious injury Eyes: Pupils equal, round, reactive to light and accommodation, EOMI, no trauma , no injection. Ears: Clear bilaterally, no perforation, normal landmarks Nose: Atraumatic, no rhinorrhea, clear. Throat: There is no erythema or exudates, no lesions, normal tonsils, mucus membranes moist. Neck: Supple, 2+ carotid upstroke, nontender, no lymphadenopathy. Respiratory: No retractions, no distress, no wheezes, and no accessory muscle use. Lungs are clear to auscultation bilaterally. Cardiovascular: Regular rate and rhythm, no murmurs, rubs, or gallops. Bilateral carotid, radial, dorsalis pedis, and posterior tibial pulses intact. Good capillary refill all extremities. Gastrointestinal: Abdomen is soft, nontender, non-distended, no masses, no rebound, no guarding, no peritoneal signs. Musculoskeletal: Normal active ROM of all extremities, atraumatic. Neurological: Dysarthric speech, probably Wernicke area. No peripheral deficits. Alert and interactive. The patient has normal DTRs and non-focal cranial nerves, motor, sensory, and cerebellar exam. Skin: No rashes, good turgor, no nodules on palpation. Past medical history: Type 2 diabetes, early stages of dementia, hypertension, hypercholesteremia Past surgical history: No recent surgeries. Family history: Denies Social history: Retired, at bedside, lives at [place] DIAGNOSTICS/PROCEDURES/CRITICAL CARE TIME: Head CT: No acute findings. Head CTA: Pending at shift change. Neck CTA: Pending at shift change. EKG: The 12 lead EKG was interpreted by myself as sinus rhythm with a rate of 88. See hard copy and/or "tracemaster" electronic copy for interpretation. Critical care time spent by me, Dr. Norton, exclusively with this patient was 60 minutes, exclusive of PA time and exclusive of procedures. The organ system at risk was neurovascular and I gave IV TPA and emergently transferred the patient to the hospitalist and neurologist to prevent worsening of the patients condition. DIFFERENTIAL DIAGNOSIS: The differential diagnosis for the patient's neurologic deficits included but was not limited to peripheral causes, central causes including CVA, TIA, electrolyte abnormalities and dehydration, cardiogenic causes, atypical causes like migraine syndrome. MEDICAL DECISION MAKING: The patient is a 78 y/o female arriving via EMS as a stroke alert. Per EMS the patient was last seen normal at 12:30. Her intermediate staff noticed that the patient was not acting appropriately as she had "word salad". Upon arrival the patient states "I'm in the hospital". She is having difficulty stating the words she is thinking of; I suspect Wernicke's areas is affected due to her dysarthric speech. I do not suspect a large vessel involvement as there no peripheral findings. Per her med list she is not anticoagulated; she does take 324mg PO Aspirin daily. Head CT and labs ordered. 1334: Patient is back from CT. Her speech has significantly improved. 1341: I spoke with Dr. Washington, radiologist, regarding patient's head CT; there are no acute findings. 1443: Reassessed patient as the stroke robot from [facility] is on in the room. The neurologist and I are re-examining the patient. Patient is hypertensive with a BP of 197/83; 20mg IV Labetalol administered. 1352: Patient is a TPA candidate, we will mix TPA. The neurologist and I have thoroughly discussed the risks and benefits of TPA with the patient's POA. He understands the risks and benefits and is comfortable with plan for TPA. He is also comfortable with plan for admission. Head and Neck CTA's ordered. 1356: Patient's BP has decreased to 161/84. She has not received TPA yet. 1409: I consulted with the hospitalist service, Dr. Garay accepts admission of this patient. I have also paged Dr. Kirk, neurologist. 1413: I interpreted patient's EKG as sinus rhythm with a rate of 88. 1415: I consulted with Dr. Kirk, neurologist, regarding this patient. He agrees to see this patient during her admission. 1500: Patient care turned over to Dr. Bowen at shift change pending CTA findings. (Ayaz Norton) CT head of the brain and neck reveals bilateral carotid atherosclerosis, no large vessel thrombosis. Results discussed with Dr. Garay. (Tammie Bowen) - Data Points Laboratory Results: Laboratory Results 12/06/18 13:40 12/06/18 13:40 12/06/18 12/06/18 12/06/18 13:41 13:41 13:40 WBC RBC Hgb POC Hgb 14.3 gm/dL gm/dL (12.6-16.3) Hct POC Hct 42 % % (38-47) MCV MCH MCHC RDW Plt Count MPV Neut % (Auto) Lymph % (Auto) Howard % (Auto) Eos % (Auto) Baso % (Auto) Nucleat RBC Rel Count Absolute Neuts (auto) Absolute Lymphs (auto) Absolute Monos (auto) Absolute Eos (auto) Absolute Basos (auto) Absolute Nucleated RBC Immature Gran % Immature Gran # PT INR APTT POC Sodium 141 mEq/L mEq/L (135-145) Sodium 137 mEq/L mEq/L (135-145) POC Potassium 4.4 mEq/L mEq/L (3.3-5.0) Potassium 4.6 mEq/L mEq/L (3.5-5.2) POC Chloride 100 mEq/L mEq/L (97-110) Chloride 101 mEq/L mEq/L (97-110) Carbon Dioxide 24 mEq/l mEq/l (22-31) POC Total CO2 24 mEq/L mEq/L (22-31) Anion Gap 12 mEq/L mEq/L (6-14) POC BUN 17 mg/dL mg/dL (7-23) BUN 17 mg/dL mg/dL (7-23) Creatinine 0.7 mg/dL mg/dL (0.6-1.0) POC Creatinine 0.6 mg/dL mg/dL (0.6-1.0) Estimated GFR > 60 Glucose 197 mg/dL H mg/dL (70-100) POC Glucose 206 mg/dL H mg/dL (70-100) Calcium 9.4 mg/dL mg/dL (8.5-10.4) POC Troponin I 0.00 ng/mL ng/mL (0.00-0.08) 12/06/18 12/06/18 13:40 13:40 WBC 9.65 10^3/uL H 10^3/uL (3.80-9.50) RBC 4.92 10^6/uL 10^6/uL (4.18-5.33) Hgb 13.7 g/dL g/dL (12.6-16.3) POC Hgb Hct 41.7 % % (38.0-47.0) POC Hct MCV 84.8 fL fL (81.5-99.8) MCH 27.8 pg L pg (27.9-34.1) MCHC 32.9 g/dL g/dL (32.4-36.7) RDW 13.1 % % (11.5-15.2) Plt Count 279 10^3/uL 10^3/uL (150-400) MPV 9.3 fL fL (8.7-11.7) Neut % (Auto) 61.9 % % (39.3-74.2) Lymph % (Auto) 29.0 % % (15.0-45.0) Howard % (Auto) 5.4 % % (4.5-13.0) Eos % (Auto) 2.9 % % (0.6-7.6) Baso % (Auto) 0.4 % % (0.3-1.7) Nucleat RBC Rel Count 0.0 % % (0.0-0.2) Absolute Neuts (auto) 5.97 10^3/uL 10^3/uL (1.70-6.50) Absolute Lymphs (auto) 2.80 10^3/uL 10^3/uL (1.00-3.00) Absolute Monos (auto) 0.52 10^3/uL 10^3/uL (0.30-0.80) Absolute Eos (auto) 0.28 10^3/uL 10^3/uL (0.03-0.40) Absolute Basos (auto) 0.04 10^3/uL 10^3/uL (0.02-0.10) Absolute Nucleated RBC 0.00 10^3/uL 10^3/uL (0-0.01) Immature Gran % 0.4 % % (0.0-1.1) Immature Gran # 0.04 10^3/uL 10^3/uL (0.00-0.10) PT 11.9 SEC L SEC (12.0-15.0) INR 0.91 (0.83-1.16) APTT 26.5 SEC SEC (23.0-38.0) POC Sodium Sodium POC Potassium Potassium POC Chloride Chloride Carbon Dioxide POC Total CO2 Anion Gap POC BUN BUN Creatinine POC Creatinine Estimated GFR Glucose POC Glucose Calcium POC Troponin I Medications Given: Discontinued Medications Alteplase, Recombinant (Activase) 62.37 mg 0.81 mg/kg (62.37 mg) IV ONCE ONE PRN Reason: Protocol Stop: 12/06/18 14:04 Last Admin: 12/06/18 14:04 Dose: 62.37 mg Alteplase, Recombinant (Activase) 6.93 mg 0.09 mg/kg (6.93 mg) IV ONCE ONE PRN Reason: Protocol Stop: 12/06/18 14:04 Last Admin: 12/06/18 14:06 Dose: 6.93 mg Labetalol HCl (Trandate Injection) 20 mg IVP EDNOW ONE Stop: 12/06/18 13:51 Last Admin: 12/06/18 13:55 Dose: 20 mg Point of Care Test Results: Chemistry 12/06/18 12/06/18 13:41 13:41 POC Sodium 141 mEq/L mEq/L (135-145) POC Potassium 4.4 mEq/L mEq/L (3.3-5.0) POC Chloride 100 mEq/L mEq/L (97-110) POC Total CO2 24 mEq/L mEq/L (22-31) POC BUN 17 mg/dL mg/dL (7-23) POC Creatinine 0.6 mg/dL mg/dL (0.6-1.0) POC Glucose 206 mg/dL H mg/dL (70-100) POC Troponin I 0.00 ng/mL ng/mL (0.00-0.08) ISTAT H&H 12/06/18 13:41 POC Hgb 14.3 gm/dL gm/dL (12.6-16.3) POC Hct 42 % % (38-47) Departure - Departure Disposition: [facility] Inpatient Acute Clinical Impression: CVA (cerebral vascular accident) Qualifiers: CVA mechanism: other Qualified Code(s): I63.89 - Other cerebral infarction Condition: Serious Report Scribed for: Ayaz Norton Report Scribed by: Marine Gan Date of Report: 12/06/18 Time of Report: 13:28
[2018-12-06 13:48] LABS: PLATELET COUNT 279 10^3/uL (150-400)
[2018-12-06] MEDS ORDERED: LABETALOL HCL 5 MG/ML 20 ML MDV IVP ONE (13:50)
[2018-12-06] MEDS ORDERED: ALTEPLASE 100 MG/100 ML VIAL IV ONE ×2 (13:50→14:03)
[2018-12-06] MEDS ORDERED: LABETALOL HCL 5 MG/ML 20 ML MDV ONE (13:51)
[2018-12-06] MEDS ORDERED: niCARdipine/NACL/200 ML BAG IV ONE (13:53)
[2018-12-06 13:56] LABS: INR 0.91 (0.83-1.16); PROTIME(PATIENT) 11.9 SEC (12.0-15.0)
[2018-12-06] MEDS ORDERED: IOPAMIDOL (ISOVUE 370) 100 ML BTL IV ONE (14:02)
[2018-12-06] MEDS ORDERED: ALTEPLASE 1 MG/ML SYR IV ONE (14:03)
[2018-12-06] MEDS ORDERED: LABETALOL HCL 5 MG/ML 20 ML MDV IVP PRN (14:24)
[2018-12-06] MEDS ORDERED: ACETAMINOPHEN 650 MG SUPP PR PRN (14:24)
[2018-12-06] MEDS ORDERED: ACETAMINOPHEN 325 MG TAB PO PRN (14:24)
[2018-12-06] MEDS ORDERED: ONDANSETRON DISINTEGRATING 4 MG TAB PO PRN (14:24)
[2018-12-06] MEDS ORDERED: ONDANSETRON 4 MG/2 ML VIAL IVP PRN (14:24)
[2018-12-06] MEDS ORDERED: D50W 25 GM/50 ML SYR IVP PRN (14:32)
--- NOTE | 2018-12-06 14:37 | CPEKG ---
Test Reason : OPEN Blood Pressure : / mmHG Vent. Rate : 088 BPM Atrial Rate : 089 BPM P-R Int : 183 ms QRS Dur : 083 ms QT Int : 389 ms P-R-T Axes : 086 038 050 degrees QTc Int : 471 ms Sinus rhythm Anterior infarct, old Confirmed by Ayaz Norton ([id number]) on 12/06/2018 2:36:55 PM Referred By: Luzma Barillas Confirmed By:Ayaz Norton
[2018-12-06] MEDS ORDERED: INSULIN LISPRO 100 UNIT/ML SC SCH (14:45)
[2018-12-06] MEDS ORDERED: MAGNESIUM HYDROXIDE 30 ML UDCUP PO PRN (14:59)
[2018-12-06] MEDS ORDERED: LACTULOSE 20 GM/30 ML UDCUP PO PRN (14:59)
[2018-12-06] MEDS ORDERED: BISACODYL 10 MG SUPP PR PRN (14:59)
[2018-12-06] MEDS ORDERED: POLYETHYLENE GLYCOL 3350 17 GM PKT PO PRN (14:59)
--- NOTE | 2018-12-06 15:47 | PDGENHP ---
History and Physical - Chief Complaint dysarthria - History of Present Illness 78 yo female with h/o hypertension and possibly early dementia presented to ED as a stroke alert. She lives at [facility] and awoke this morning with difficulty speaking. She was able to speak, but witnesses described word salad. There was no reported facial droop or focal weakness. No headache or vision changes. She was brought to the ED via EMS and [facility] neurology evaluated patient and recommended IV TpA. Her initial BP was 197 systolic and she received 20 mg IV Labetalol. She normally takes Aspirin 325 mg daily. She is also diabetic. She is a non-smoker. CTA was negative for large vessel occlusion. She is admitted for further management. History Information - Allergies/Home Medication List Allergies/Adverse Reactions: codeine [Codeine] Allergy (Verified 04/13/18 07:44) Pt unsure of reaction fluorescein Allergy (Verified 04/13/18 07:44) Pt reports eye swelling papaya Allergy (Verified 04/13/18 07:44) Pt reports anaphylaxis CUMIN Allergy (Uncoded 04/13/18 07:44) Pt repors Anaphylaxis PETROS Allergy (Uncoded 04/13/18 07:44) Pt reports Anaphylaxis NUTS Allergy (Uncoded 04/13/18 07:44) Pt reports Anaphylaxis Home Medications: Aspirin [Aspirin 325 mg (*)] 325 mg PO HS 08/27/17 [Last Taken 05/07/18] Lisinopril [Zestril 20 mg (*)] 20 mg PO HS 08/27/17 [Last Taken 05/07/18] Simvastatin [Zocor] 40 mg PO HS 08/27/17 [Last Taken 05/07/18] metFORMIN HCL [Glucophage 1000 mg] 1,000 mg PO BID 08/27/17 [Last Taken 21:00] Cholecalciferol Vit D3 [Vitamin D3 2000 units tab (OTC)] 2,000 units PO HS 05/08 [Last Taken 05/07/18] Insulin Degludec [Tresiba Flextouch U-100] 32 unit SQ DAILY18 05/08/18 [Last Taken 05/07/18] I have personally reviewed and updated: family history, medical history, social history, surgical history - Past Medical History diabetes type 2, hypertension Additional medical history: Pancreatic mass - Surgical History Reports: hysterectomy, spinal surgery - Family History Positive for: cancer, CAD - Social History Smoking Status: Never smoked Alcohol Use: Rarely Drug Use: None Additional social history: Lives at [facility]. does not live with her , though he is present at the bedside. Review of Systems Review of Systems: ROS: 10pt was reviewed & negative except for what was stated in HPI & below Physical Exam Physical Exam: Temp Pulse Resp BP Pulse Ox 36.6 C 88 20 154/89 H 98 12/06/18 15:00 12/06/18 15:15 12/06/18 15:15 12/06/18 15:15 12/06/18 15:15 O2 (L/minute) 2 Constitutional: no apparent distress Eyes: PERRL Ears, Nose, Mouth, Throat: moist mucous membranes Cardiovascular: regular rate and rhythym, no murmur, rub, or gallop Respiratory: no respiratory distress, clear to auscultation Gastrointestinal: normoactive bowel sounds, soft, non-tender abdomen Skin: warm Musculoskeletal: full muscle strength Neurologic: AAOx3, other (dysarthric speech, no facial droop, pronator drift neg ) Psychiatric: interacting appropriately Lab Data & Imaging Review 12/06/18 13:40 12/06/18 13:40 WBC 9.65 10^3/uL (3.80-9.50) H 12/06/18 13:40 RBC 4.92 10^6/uL (4.18-5.33) 12/06/18 13:40 Hgb 13.7 g/dL (12.6-16.3) 12/06/18 13:40 POC Hgb 14.3 gm/dL (12.6-16.3) 12/06/18 13:41 Hct 41.7 % (38.0-47.0) 12/06/18 13:40 POC Hct 42 % (38-47) 12/06/18 13:41 MCV 84.8 fL (81.5-99.8) 12/06/18 13:40 MCH 27.8 pg (27.9-34.1) L 12/06/18 13:40 MCHC 32.9 g/dL (32.4-36.7) 12/06/18 13:40 RDW 13.1 % (11.5-15.2) 12/06/18 13:40 Plt Count 279 10^3/uL (150-400) 12/06/18 13:40 MPV 9.3 fL (8.7-11.7) 12/06/18 13:40 Neut % (Auto) 61.9 % (39.3-74.2) 12/06/18 13:40 Lymph % (Auto) 29.0 % (15.0-45.0) 12/06/18 13:40 [place] % (Auto) 5.4 % (4.5-13.0) 12/06/18 13:40 Eos % (Auto) 2.9 % (0.6-7.6) 12/06/18 13:40 Baso % (Auto) 0.4 % (0.3-1.7) 12/06/18 13:40 Nucleat RBC Rel Count 0.0 % (0.0-0.2) 12/06/18 13:40 Absolute Neuts (auto) 5.97 10^3/uL (1.70-6.50) 12/06/18 13:40 Absolute Lymphs (auto) 2.80 10^3/uL (1.00-3.00) 12/06/18 13:40 Absolute Monos (auto) 0.52 10^3/uL (0.30-0.80) 12/06/18 13:40 Absolute Eos (auto) 0.28 10^3/uL (0.03-0.40) 12/06/18 13:40 Absolute Basos (auto) 0.04 10^3/uL (0.02-0.10) 12/06/18 13:40 Absolute Nucleated RBC 0.00 10^3/uL (0-0.01) 12/06/18 13:40 Immature Gran % 0.4 % (0.0-1.1) 12/06/18 13:40 Immature Gran # 0.04 10^3/uL (0.00-0.10) 12/06/18 13:40 PT 11.9 SEC (12.0-15.0) L 12/06/18 13:40 INR 0.91 (0.83-1.16) 12/06/18 13:40 APTT 26.5 SEC (23.0-38.0) 12/06/18 13:40 POC Sodium 141 mEq/L (135-145) 12/06/18 13:41 Sodium 137 mEq/L (135-145) 12/06/18 13:40 POC Potassium 4.4 mEq/L (3.3-5.0) 12/06/18 13:41 Potassium 4.6 mEq/L (3.5-5.2) 12/06/18 13:40 POC Chloride 100 mEq/L (97-110) 12/06/18 13:41 Chloride 101 mEq/L (97-110) 12/06/18 13:40 Carbon Dioxide 24 mEq/l (22-31) 12/06/18 13:40 POC Total CO2 24 mEq/L (22-31) 12/06/18 13:41 Anion Gap 12 mEq/L (6-14) 12/06/18 13:40 POC BUN 17 mg/dL (7-23) 12/06/18 13:41 BUN 17 mg/dL (7-23) 12/06/18 13:40 Creatinine 0.7 mg/dL (0.6-1.0) 12/06/18 13:40 POC Creatinine 0.6 mg/dL (0.6-1.0) 12/06/18 13:41 Estimated GFR > 60 12/06/18 13:40 Glucose 197 mg/dL (70-100) H 12/06/18 13:40 POC Glucose 206 mg/dL (70-100) H 12/06/18 13:41 Hemoglobin A1c 7.6 % (4.0-6.0) H 12/06/18 14:29 Estim Average Glucose 171 mg/dL (68-126) H 12/06/18 14:29 Calcium 9.4 mg/dL (8.5-10.4) 12/06/18 13:40 POC Troponin I 0.00 ng/mL (0.00-0.08) 12/06/18 13:41 Visualized and Interpreted EKG results: Yes EKG Interpretation: Positive for: normal sinsus rhythm, Q waves Assessment & Plan Assessment: CVA (cerebral vascular accident) (Acute) - s/p IV TpA in ED at 1400. She continues to have dysarthria, no other focal neurologic deficits. -admit to ICU s/p TpA for close monitoring, neurochecks -repeat CT in 24 hrs -hold anti-platelet therapy until repeat CT in 24 hrs, if neg, might change to Plavix since this occurred on full dose ASA therapy -cont statin, check lipid status in am -permissive htn, treat with IV labetalol for SBP >180, DBP >105 post-tpa parameters -check echo -monitor on telemetry, consider outpt cardiac event monitor to search for a fib if no other explanation for stroke and no e/o a fib here -npo until speech / swallow eval -neurology consult in am Hypertension - cont home lisinopril DM - bg elevated on arrival -check a1c -q6h bg's while npo, change to ACHS if cleared for diet -SSI -hold metformin given contrast with CTA Dementia Pancreatic mass Full code Dispo - admit to ICU, inpt. 40 min crit care
--- NOTE | 2018-12-06 17:17 | PDMN ---
Medical Necessity Medical necessity: MCG: M83 stroke: ischemic 2 days: 78yoF with PMHX HTN , poss. dementia- lives at [facility], awoke with diff. speaking, - word salad- neurology rec. tPA, neuro consult, anticipate > 2 MN ongoing med nec care.
[2018-12-06] MEDS ORDERED: SENNOSIDES/DOCUSATE SODIUM TAB PO SCH (21:00)
[2018-12-06] MEDS: ATORVASTATIN CALCIUM 40 MG TAB PO SCH (21:10)
[2018-12-06] MEDS: LISINOPRIL 20 MG TAB PO SCH (21:11)
[2018-12-06] MEDS: INSULIN LISPRO 100 UNIT/ML SC SCH (21:11)
[2018-12-07] MEDS: INSULIN LISPRO 100 UNIT/ML SC SCH ×4 (07:47→21:32)
[2018-12-07] MEDS ORDERED: hydrALAZINE 20 MG/ML VIAL IVP PRN (08:45)
[2018-12-07] MEDS ORDERED: ATROPINE SULFATE 1 MG/10 ML SYR ONE (09:16)
--- NOTE | 2018-12-07 09:25 | PDCARCONS ---
Cardiology Consult Reason for Consult: Transient high-grade AV block. Chief Complaint: Aphasia. Requesting Physician: Dr. Sim Pacheco. History of Present Illness: This is a 78-year-old female with a past medical history significant for diabetes mellitus, hypertension and mild dementia currently a resident at [facility]. She has no history of cardiovascular disease. Specifically there is no history of CAD or arrhythmia. She was admitted yesterday after she presented with expressive aphasia. She was diagnosed with an acute stroke in administered tPA after appropriate neurologic imaging. She has done well since administration of the tPA with no indication of complication. Earlier today she was sitting in bed having breakfast. She states that she became abruptly nauseated. She felt that she might throw up however did not have emesis. On telemetry she experienced a transient episode of about 5 sec of high-grade AV block. This resolved spontaneously. There was no associated ST or T changes. She had no associated symptoms of chest pain, chest pressure or heaviness. Importantly she has not received any AV jeannie agents yesterday. She did receive 20 mg of IV labetalol yesterday at the time of her admission through the emergency department. She had an ECG done earlier today that indicates normal sinus rhythm with a normal [place] interval and no evidence of IVCD. History Information - Allergies/Home Medication List Allergies/Adverse Reactions: codeine [Codeine] Allergy (Verified 04/13/18 07:44) Pt unsure of reaction fluorescein Allergy (Verified 04/13/18 07:44) Pt reports eye swelling papaya Allergy (Verified 04/13/18 07:44) Pt reports anaphylaxis CUMIN Allergy (Uncoded 04/13/18 07:44) Pt repors Anaphylaxis PETROS Allergy (Uncoded 04/13/18 07:44) Pt reports Anaphylaxis NUTS Allergy (Uncoded 04/13/18 07:44) Pt reports Anaphylaxis Home Medications: Aspirin [Aspirin 325 mg (*)] 325 mg PO HS 08/27/17 [Last Taken 12/05/18] Lisinopril [Zestril 20 mg (*)] 20 mg PO HS 08/27/17 [Last Taken 12/05/18] Simvastatin [Zocor] 40 mg PO HS 08/27/17 [Last Taken 12/05/18] metFORMIN HCL [Glucophage 1000 mg] 1,000 mg PO BID 08/27/17 [Last Taken am dose only] Cholecalciferol Vit D3 [Vitamin D3 2000 units tab (OTC)] 2,000 units PO HS 05/08 [Last Taken 12/05/18] Insulin Degludec [Tresiba Flextouch U-100] 16 unit SQ DAILY18 05/08/18 [Last Taken 12/05/18] Acetaminophen [Tylenol ES 500 mg (*)] 500 mg PO DAILY PRN 12/06/18 [Last Taken Unknown] Insulin Regular, Human [Afrezza] 8 unit IH BID 12/06/18 [Last Taken 12/06/18 am dose only] I have personally reviewed and updated: family history, medical history, social history, surgical history Past Medical History: Current admission following a stroke, history of hypertension, dementia. - Surgical History Reports: no pertinent surgical hx - Family History Positive for: non-pertinent - Social History Smoking Status: Never smoked Alcohol Use: Rarely Drug Use: None Physical Exam Physical Exam: Temp Pulse Resp BP Pulse Ox 36.8 C 78 13 158/72 H 96 12/07/18 08:45 12/07/18 08:45 12/07/18 08:45 12/07/18 08:45 12/07/18 08:45 O2 (L/minute) 2 Constitutional: no apparent distress, appears nourished, not in pain Eyes: PERRL, anicteric sclera, EOMI Ears, Nose, Mouth, Throat: moist mucous membranes, hearing normal, ears appear normal, no oral mucosal ulcers Cardiovascular: regular rate and rhythym, no murmur, rub, or gallop, No edema Peripheral Pulses: 2+: carotid (R), carotid (L) Respiratory: no respiratory distress, no rales or rhonchi, clear to auscultation Gastrointestinal: normoactive bowel sounds, soft, non-tender abdomen, no palpable masses Genitourinary: no bladder fullness, no bladder tenderness Skin: warm, normal color, no rashes or abrasions, no fluctuance, no induration, No mottled Musculoskeletal: full muscle strength, no muscle tenderness, normal joint ROM, no joint effusions Neurologic: AAOx3 Psychiatric: interacting appropriately, not anxious, not encephalopathic, thought process linear Lymph, Heme, Immunologic: no cervical LAD, no supraclavicular LAD Lab and Imaging 12/06/18 13:40 12/06/18 13:40 WBC 9.65 10^3/uL (3.80-9.50) H 12/06/18 13:40 RBC 4.92 10^6/uL (4.18-5.33) 12/06/18 13:40 Hgb 13.7 g/dL (12.6-16.3) 12/06/18 13:40 POC Hgb 14.3 gm/dL (12.6-16.3) 12/06/18 13:41 Hct 41.7 % (38.0-47.0) 12/06/18 13:40 POC Hct 42 % (38-47) 12/06/18 13:41 MCV 84.8 fL (81.5-99.8) 12/06/18 13:40 MCH 27.8 pg (27.9-34.1) L 12/06/18 13:40 MCHC 32.9 g/dL (32.4-36.7) 12/06/18 13:40 RDW 13.1 % (11.5-15.2) 12/06/18 13:40 Plt Count 279 10^3/uL (150-400) 12/06/18 13:40 MPV 9.3 fL (8.7-11.7) 12/06/18 13:40 Neut % (Auto) 61.9 % (39.3-74.2) 12/06/18 13:40 Lymph % (Auto) 29.0 % (15.0-45.0) 12/06/18 13:40 [place] % (Auto) 5.4 % (4.5-13.0) 12/06/18 13:40 Eos % (Auto) 2.9 % (0.6-7.6) 12/06/18 13:40 Baso % (Auto) 0.4 % (0.3-1.7) 12/06/18 13:40 Nucleat RBC Rel Count 0.0 % (0.0-0.2) 12/06/18 13:40 Absolute Neuts (auto) 5.97 10^3/uL (1.70-6.50) 12/06/18 13:40 Absolute Lymphs (auto) 2.80 10^3/uL (1.00-3.00) 12/06/18 13:40 Absolute Monos (auto) 0.52 10^3/uL (0.30-0.80) 12/06/18 13:40 Absolute Eos (auto) 0.28 10^3/uL (0.03-0.40) 12/06/18 13:40 Absolute Basos (auto) 0.04 10^3/uL (0.02-0.10) 12/06/18 13:40 Absolute Nucleated RBC 0.00 10^3/uL (0-0.01) 12/06/18 13:40 Immature Gran % 0.4 % (0.0-1.1) 12/06/18 13:40 Immature Gran # 0.04 10^3/uL (0.00-0.10) 12/06/18 13:40 PT 11.9 SEC (12.0-15.0) L 12/06/18 13:40 INR 0.91 (0.83-1.16) 12/06/18 13:40 APTT 26.5 SEC (23.0-38.0) 12/06/18 13:40 POC Sodium 141 mEq/L (135-145) 12/06/18 13:41 Sodium 137 mEq/L (135-145) 12/06/18 13:40 POC Potassium 4.4 mEq/L (3.3-5.0) 12/06/18 13:41 Potassium 4.6 mEq/L (3.5-5.2) 12/06/18 13:40 POC Chloride 100 mEq/L (97-110) 12/06/18 13:41 Chloride 101 mEq/L (97-110) 12/06/18 13:40 Carbon Dioxide 24 mEq/l (22-31) 12/06/18 13:40 POC Total CO2 24 mEq/L (22-31) 12/06/18 13:41 Anion Gap 12 mEq/L (6-14) 12/06/18 13:40 POC BUN 17 mg/dL (7-23) 12/06/18 13:41 BUN 17 mg/dL (7-23) 12/06/18 13:40 Creatinine 0.7 mg/dL (0.6-1.0) 12/06/18 13:40 POC Creatinine 0.6 mg/dL (0.6-1.0) 12/06/18 13:41 Estimated GFR > 60 12/06/18 13:40 Glucose 197 mg/dL (70-100) H 12/06/18 13:40 POC Glucose 226 mg/dL (70-100) H 12/07/18 07:09 Hemoglobin A1c 7.6 % (4.0-6.0) H 12/06/18 14:29 Estim Average Glucose 171 mg/dL (68-126) H 12/06/18 14:29 Calcium 9.4 mg/dL (8.5-10.4) 12/06/18 13:40 POC Troponin I 0.00 ng/mL (0.00-0.08) 12/06/18 13:41 Triglycerides 65 mg/dL (35-135) 12/07/18 04:54 Cholesterol 129 mg/dL (140-220) L 12/07/18 04:54 Cholesterol Risk Factr 0.4 (0.2-1.0) 12/07/18 04:54 LDL Cholesterol, Calc 58 mg/dL (80-100) L 12/07/18 04:54 LDL Risk Factor 0.4 (0.2-1.0) 12/07/18 04:54 VLDL Cholesterol 13 mg/dL (8-25) 12/07/18 04:54 Non-HDL Cholesterol 71 mg/dL (90-129) L 12/07/18 04:54 HDL Cholesterol 58 mg/dL (40-85) 12/07/18 04:54 LDL/HDL Ratio 1.00 RATIO (1.00-3.22) 12/07/18 04:54 Cholesterol/HDL Ratio 2.22 RATIO (1.00-4.44) 12/07/18 04:54 A/P Assessment: This is a 78-year-old female who is less than 24 hr out from thrombolysis in the setting of an acute CVA. Important comorbidities include her history of hypertension and diabetes mellitus. She has no prior cardiac history and has an underlying normal ECG. Earlier today she experienced transient high-grade AV block in the setting of nausea. I think this might be related to the nausea and a result of a vasovagal event. Certainly underlying intrinsic conduction system disease has not been excluded however in the setting of a normal ECG this is less likely. Additionally, I do not think that the recent administration of labetalol yesterday was a contributing factor. And intracranial complication following the administration of tPA could be a contributing factor however she is really not manifesting any acute and new neurologic symptoms. Electrolyte abnormalities are also on the differential diagnosis as is transient ischemic. Plan: 1. Avoid AV jeannie agents. 2. She will have imaging of her head done later today. 3. We will plan to place Zoll pads. 4. Atropine can be administered as needed. 5. We will continue to monitor on telemetry. 6. I will order a basic metabolic panel, magnesium and calcium. 7. In light of her recent stroke I have ordered an echocardiogram. 8. We will trend her cardiac enzymes. 9. We will follow along with you. Review of Systems Review of Systems: Review of systems was attempted however not completed due to the patient's difficulty communicating.
--- NOTE | 2018-12-07 10:28 | GCON ---
[f rep st] CONSULTATION NEUROLOGIC CONSULTATION REFERRING PHYSICIAN: Holly Garay MD HISTORY: The patient is a 78-year-old woman who I am asked to see in neurologic consultation regardi ng stroke. She presented to the emergency room yesterday after the onset of speech impairment around 12:30 p.m. She said she had gotten up and was feeling okay and this was recognized when she was at [facility]. Based on this, she came to the emergency department for evaluation and was felt to be having a cute stroke, so received tPA. She has continued to have some mild word-finding difficulty, although it has improved. No other specific deficits have been noted. She says she has not had this before. She is now in the ICU, having received the initiation of treatment around [address] angiogram of the head and neck did not show any large vessel occlusions. There is a mild-to-m oderate degree of atherosclerotic change in the 30% range in the carotid system. Echo results are pe nding. She has had 1 episode of temporary heart block, but is now back in sinus rhythm. ADDITIONAL PAST MEDICAL HISTORY: Type 2 diabetes and hypertension and a prior history of pancreatic mass. PAST SURGICAL HISTORY: Hysterectomy, prior spinal surgery. FAMILY HISTORY: Coronary artery disease and cancer. SOCIAL HISTORY: No smoking, rare alcohol. She normally resides at [facility]. HOME MEDICATION: A daily aspirin, lisinopril, Zocor, metformin, vitamin D, and insulin. ALLERGIES: Listed are codeine, Fluoracaine and some food allergies. REVIEW OF SYSTEMS: She is denying headache or chest pain, palpitations, or shortness of breath. PHYSICAL EXAM: VITAL SIGNS: Blood pressure 158/72, pulse of 78, respirations 13, temperature 36.8. NECK: Supple with no bruits or masses. CARDIAC: Regular rate and rhythm. No murmur. NEUROLOGIC: She is awake and alert and attentive, and oriented. She has nonfluent speech, but has only some mil d difficulty with some hesitancy and occasional word-finding difficulties. She was able to spell, pe rform basic calculations, follow commands, name objects, read words and read sentences correctly. 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 There is also a mild degree of right ptosis relative to the le ft, which is apparently not a new phenomenon. No visual field loss. Extraocular movements intact. Normal facial sensation. There is a very subtle right lower facial droop relative to the left, but n ot much difference when she actually shows her teeth. Palate elevates symmetrically. Tongue protrud es midline. Motor exam: I detect minimal weakness in the right upper extremity proximal compared to the left, but no asymmetry in the lower extremities. Reflexes 1+. Sensation is preserved for temper ature and light touch. On [id number] testing there is a mild degree of dis-coordination of movem ent of the right hand relative to the left, but both have a mild degree of action tremor. The NIH stroke scale would be 2. I have reviewed the CTA and head CT results. I agree with the inte rpretations and there is no evidence of acute infarct. IMPRESSION: Total unit time of 75 minutes. This patient has experienced clinical evidence of an acu te stroke and this could be on a small-vessel basis or embolic phenomena, but would probably favor an atherosclerotic source in the left middle cerebral artery distal branches. No definite embolic sour ce seen on the CT angiogram. Echocardiogram results are pending. The relevance of this transient he art block is uncertain and Cardiology is checking on her as well. After 24 hours, she will have a fo llowup head CT looking for any evidence of hemorrhage and we can then initiate treatment with antipla telet therapy as appropriate. She should continue statin therapy. Depending on her telemetry, more prolonged cardiac monitoring could be appropriate. Physical, Occupational, and Speech Therapy consul ts will be initiated after 24 hours. /[id number]/MODL
--- NOTE | 2018-12-07 11:21 | PDINTPN ---
[employer] Progress Note Assessment/Plan: 78 F admitted 12/06 with acute onset of word finding difficulty and presumed CVA. Treated with TPA without significant complications. Hx HTN * CVA following stroke protocol with echo results pending. Minor bleeding at IV sites and petechiae in SCD distribution. Swallow, PT/OT, neuro consults. * CHB- nonsustained and brief but symptomatic. Could have been vagal episode but warrants cardiology consult and ongoing ICU monitoring. * HTN- avoid jeannie blocking agents. Started hydralazine prn SBP>160 * DM- insulin per hospitalist team Subjective: episode of chest discomfort, increased word finding difficulty, and nausea while on tele showing CHB. Symptoms resolved with spontaneous return to NSR. Objective: Vital Signs Temp Pulse Resp BP Pulse Ox 36.7 C 79 19 157/71 H 97 12/07/18 10:45 12/07/18 10:45 12/07/18 10:45 12/07/18 10:45 12/07/18 10:45 Laboratory Results 12/07/18 04:54 12/06/18 12/07/18 12/08/18 05:59 05:59 05:59 Intake Total 200 Output Total 1700 Balance -1500 PT 11.9 SEC (12.0-15.0) L 12/06/18 13:40 INR 0.91 (0.83-1.16) 12/06/18 13:40 Physical Exam - Physical Exam General Appearance: alert, no apparent distress EENT: PERRL/EOMI, No scleral icterus (R), No scleral icterus (L), No EOM palsy, No anisocoria Neck: full range of motion, supple Respiratory: lungs clear, normal breath sounds, decreased breath sounds, No respiratory distress, No accessory muscle use Cardiac/Chest: regular rate, rhythm, No edema, No JVD, No tachycardia Abdomen: non-tender, soft, No distended Skin: normal color, warm/dry, No cyanosis, No diaphoresis, No rash Lymphatic: no adenopathy Extremities: normal range of motion, No pedal edema Neuro/Psych: alert, normal mood/affect, oriented x 3, No motor weakness, No cognition abnormalities ICD10 Worksheet Patient Problems: Problems Problem Status Onset CVA (cerebral vascular accident) Acute Altered mental status Acute Diarrhea Acute Dysuria Acute Hyperglycemia Acute Pyuria Acute Urinary incontinence Acute Vomiting Acute
[2018-12-07] MEDS ORDERED: MAGNESIUM SULF 2 GM/WATER 50 ML IV ONE (11:30)
--- NOTE | 2018-12-07 11:34 | GCON ---
[f rep st] CONSULTATION DICTATING PULMONARY CRITICAL CARE CONSULT DATE OF CONSULTATION: 12/06/2018 HISTORY OF PRESENT ILLNESS: This patient is a 78-year-old female with a history of hypertension and possible early dementia who was brought to the emergency department after having difficulty finding words. She is normally alert and oriented and lives in independent living, but had difficulty acutely. She was evaluated by [facility] in the emergency department. A CT scan was negative for intracranial bleeding, and she underwent treatment with tPA. She did receive 20 mg IV labetalol at that time because of a blood pressure 197 systolic and takes aspirin daily. However, she tolerated these well. Her symptoms were largely resolved by the time she landed in the ICU and at the time of my initial evaluation was able to speak in full sentences without difficulty except for more complex discussions. REVIEW OF SYSTEMS: Otherwise negative. PAST MEDICAL HISTORY: Includes diabetes, hypertension, benign pancreatic mass. PAST SURGICAL HISTORY: Includes hysterectomy and back surgery. SOCIAL HISTORY: She is a nonsmoker. No significant alcohol. She lives at [place]. FAMILY HISTORY: Includes cancer and coronary artery disease. MEDICATIONS: Include aspirin, lisinopril, Zocor, metformin, vitamin D3, insulin. PHYSICAL EXAMINATION: VITAL SIGNS: Include a blood pressure 169/84, heart rate 83, respirations 16, oxygen saturation 97% on 2 L. GENERAL: She is very pleasant woman in no apparent distress and able to speak in full sentences without using accessory muscles for breathing. She was alert and oriented x3. Answers questions appropriately and did not have any difficulty with word finding. HEENT: Pupils are equally round and reactive to light. Nonicteric and noninjected. Mucous membranes moist without erythema or exudate. NECK: Supple without adenopathy or jugular vein distention. LUNGS: Breath sounds were clear to auscultation bilaterally without wheezes, rubs, rales. HEART: Regular rate and rhythm without murmurs, rubs, or gallops. ABDOMEN: Soft, nontender, nondistended without hepatosplenomegaly. EXTREMITIES: Show no clubbing, cyanosis, or edema. NEUROLOGICAL: Nonfocal with 5/5 motor strength throughout. Deep tendon reflexes were also normal. No sensory deficits. SKIN : Warm and dry, without rashes. OBJECTIVE DATA: Includes a white count of 9.6, hematocrit 41, platelets of 279. Coags were normal. Basic metabolic panel was also normal. Glucose 197. Hemoglobin A1c was 7.6. Troponin was negative. ASSESSMENT/PLAN: 1. What appears to be acute stroke of uncertain etiology. She has been treated with tPA and appears to have symptomatic improvement. Ongoing monitoring is clearly indicated. We will continue with the stroke protocol. An echocardiogram is pending at this time. 2. Hypertension. We will manage this with her outpatient medications when she is cleared by Speech. /[id number]/MODL MTDD
--- NOTE | 2018-12-07 13:41 | ASMTCMCOM ---
CM Note CM Note Notes: Patient admitted after experiencing speech difficulties. She was originally dx w CVA (and given tPa); however, she also experienced a transient episode of AV block this morning. Patient is normally independent, she lives at [place]. She has a caregiver named Angela who provides 1-3 hrs care/daily. She also has home PT with [facility]. Her Luis is available and supportive. [employer] DEF[employer] FORENS[employer] ANALYST has seen and recommends home care. PT/OT evals to follow. Case Management will follow. Date Signed: 12/07/2018 01:39 PM Electronically Signed By:Yarelis Myers RN
--- NOTE | 2018-12-07 13:51 | ECHO ---
[email or web address] [address] [address] Main: [phone] Echocardiography Examination Transthoracic Name: SHERWIN MALHOTRA MR#: [id number] Study Date: 12/07/2018 Study Time: 07:21 AM Date of : 1940 Age: 78 year(s) Height: 160 cm (63 in.) Weight: 76.66 kg (169 lb.) BSA: 1.8 m2 Gender: Female Examination: Echo Contrast: Image Quality: Adequate Rhythm: Heart Rate: BP: 173 mmHg/72 mmHg Indication: Ischemic stroke Procedure Staff Referring Physician: Supervising Architect: Fiona Newman RDCS Reading Physician: Kendell Arce MD Requesting Provider: Indication: Ischemic stroke Measurements Chambers AV/MV Label Value Normal Value Label Value Normal Value LVDd, 2D 4.6 cm (3.9cm - 5.3cm) AV PGmean 5 mmHg LVDs, 2D 2.7 cm (2.1cm - 4cm) AV Vmax 1.43 m/s IVSd, 2D 1 cm (0.6cm - 1.1cm) MV E Vmax 0.97 m/s LVPWd, 2D 0.9 cm MV A Vmax 1.16 m/s LVEF, 2D 72 % (54% - 74%) MV E/A 0.84 LADs, 2D 3.3 cm (2.7cm - 3.8cm) MV E/E' lateral 20 Additional Vessels MV E/E' septal 17.8 (0.45 - 1.25) Label Value Normal Value MV E' septal 0.05 m/s AoAsc 2.9 cm MV E' lateral 0.05 m/s AoRoot, MM 3.3 cm (2.2cm - 3.7cm) MV E/E' mean 19.4 MV E' mean 0.05 m/s Conclusions Normal left ventricular size and systolic function. LVEF estimated at 60 65% with normal left ventricular free wall thickness and wall motion. Normal diastolic function. Normal RV, RA and LA dimensions. Intact interatrial septum. Agitated saline contrast study was performed and was negative for [id number] shunting. Mild mitral annular calcification with extension into the mitral leaflets. Normal mitral leaflet excursion during diastole without evidence of mitral stenosis. Trivial to mild mitral regurgitation. Trileaflet aortic valve. Trivial aortic regurgitation. Normal-appearing tricuspid valve. Trivial tricuspid regurgitation. Cannot estimate RVSP. No pericardial effusion. Patient: SHERWIN MALHOTRA Study Date: 12/07/2018 Page 1 of 2 07:21 AM Findings Left Ventricle: E/a wave reversal.. Left ventricle is normal in size. Normal global systolic left ventricular function. EF range is estimated at 60 % - 65 %. Left ventricle wall thickness is normal. There are no regional wall motion abnormalities. Left ventricular diastolic function parameters are normal. IVS: The septum is intact. Right Ventricle: Normal size right ventricle. Right ventricular wall thickness is normal. Right ventricular systolic function is normal. Left Atrium: The left atrium is normal in size. IAS: An agitated saline study was performed and was negative for intracardiac shunting. Right Atrium: The right atrium is normal in size. Mitral Valve: Trivial to mild mitral regurgitation. No mitral valve stenosis. There is mild mitral calcification. There is moderate mitral calcification. Aortic Valve: Aortic leaflets exhibit normal cuspal separation. Trivial aortic regurgitation is present. There is no aortic stenosis. Tricuspid Valve: Tricuspid valve leaflets are normal in appearance and function. No tricuspid valve stenosis. Pulmonary artery pressure cannot be assessed due to inadequate TR signal. Pulmonic Valve: Pulmonic valve is poorly visualized. Pulmonic leaflets exhibit normal cuspal separation. No pulmonic valve regurgitation is evident. There is no pulmonic valve stenosis. Aorta: The aorta is normal. The aortic root size in M-mode measures 3.3 cm. The ascending aorta measures 2.9 cm. Aorta Measurements AoRoot, MM is 3.3 cm. Pericardium: A pericardial fat pad is present. No pericardial effusion. No pleural effusion present. Exam Details Procedure Ordered: Echo Procedure Status: Routine study Image Quality: Adequate Facility Location: Cardiac Echo 1 (No Signature Object) Patient: SHERWIN MALHOTRA Study Date: 12/07/2018 Page 2 of 2 07:21 AM [id number]
--- NOTE | 2018-12-07 13:51 | HOSPPROG ---
Hospitalist Progress Note Assessment/Plan: CVA (cerebral vascular accident) (Acute) - s/p IV TpA in ED at 1400 on 12/06. -Resolved dysarthria, no other focal neurologic deficits. -ICU s/p TpA for close monitoring, neurochecks -repeat CT in 24 hrs, will be done this afternoon -hold anti-platelet therapy until repeat CT in 24 hrs, if neg, might change to Plavix since this occurred on full dose ASA therapy: Will await neuro reccs -cont statin, LDL 58 -permissive htn, treat with Hydralazine -check echo -monitor on telemetry, consider outpt cardiac event monitor to search for a fib if no other explanation for stroke and no e/o a fib here -npo until speech / swallow eval -neurology following Hypertension - cont home lisinopril -permissive HTN per above IDDDM -A1C7.6 -Hyperglycemia: She has brought in her home regimen and this will be restarted. -cont SSI -hold metformin given contrast with CTA Complete Heart block on 12/07 a.m. -Etiology unclear, possible vagal vs other -Cards consult -Telemetry -TTE Dementia Pancreatic mass Full code Dispo - cont ICU care Subjective: no cp or sob. had chb earlier Objective: Vital Signs Temp Pulse Resp BP Pulse Ox 36.8 C 83 15 130/58 H 97 12/07/18 12:45 12/07/18 12:45 12/07/18 12:45 12/07/18 12:45 12/07/18 12:45 Laboratory Results 12/07/18 04:54 12/06/18 12/07/18 12/08/18 05:59 05:59 05:59 Intake Total 200 Output Total 1700 Balance -1500 PT 11.9 SEC (12.0-15.0) L 12/06/18 13:40 INR 0.91 (0.83-1.16) 12/06/18 13:40 - Physical Exam Constitutional: no apparent distress Eyes: PERRL, EOMI Ears, Nose, Mouth, Throat: moist mucous membranes, hearing normal Cardiovascular: regular rate and rhythym Respiratory: no respiratory distress, no rales or rhonchi, clear to auscultation Gastrointestinal: normoactive bowel sounds, soft, non-tender abdomen Skin: warm Neurologic: AAOx3 Psychiatric: interacting appropriately, not anxious, not encephalopathic Lymph, Heme, Immunologic: No petechiae ICD10 Worksheet Patient Problems: Problems Problem Status Onset CVA (cerebral vascular accident) Acute Altered mental status Acute Diarrhea Acute Dysuria Acute Hyperglycemia Acute Pyuria Acute Urinary incontinence Acute Vomiting Acute
[2018-12-07] MEDS ORDERED: Insulin Degludec [Tresiba Flextouch U-100] 16 UNIT SQ SCH (18:00)
[2018-12-07] MEDS ORDERED: INSULIN REGULAR HUMAN IH SCH (18:00)
[2018-12-07] MEDS: LISINOPRIL 20 MG TAB PO SCH (20:54)
[2018-12-07] MEDS: ATORVASTATIN CALCIUM 40 MG TAB PO SCH (20:54)
[2018-12-08] MEDS ORDERED: PROTOCOL MAGNESIUM 1 DOSE IV PRN (07:53)
--- NOTE | 2018-12-08 08:13 | SOAPPROG ---
SOAP Progress Note Assessment/Plan: Assessment: 1. Current admission with an acute cerebrovascular accident with symptoms of expressive aphasia status post administration of tPA. Clinically improving. Head CT from yesterday without any indications of an active intracranial process. Her echocardiogram and agitated saline contrast study was normal. 2. Transient high-grade AV block noted yesterday morning during breakfast. This was associated with symptoms of nausea. Likely vasovagal. Her resting ECG is within normal limits and she has not had any recurrent episodes. 3. History of hypertension. 4. Type 2 diabetes mellitus. 5. Mild dementia. Plan: 1. At the present time she does not meet criteria for implantation of a permanent pacemaker. I think that her episode of transient AV block was likely vagally mediated in the setting of her nausea. I would recommend continued monitoring during this hospitalization. 2. In light of her stroke and the absence of a clear-cut etiology, outpatient monitoring is indicated. I think it would be worthwhile to pursue placement of a 2 week Zio monitor prior to hospital discharge. She can follow up with Cardiology following completion of that monitor to to review the findings. Depending on those results consideration could be given to implantation of a LINQ. 3. Continue secondary prevention in the form of blood pressure control and cholesterol control in light of her multiple risk factors and recent stroke. 4. I will defer to Neurology regarding recommendations surrounding antiplatelet therapy. 5. We will sign off for now. 12/08/18 08:13 Subjective: She is doing well today. She has not had any further episodes of nausea or high -grade AV block. Cardiac enzymes have been negative. Her electrolytes were within normal limits with the exception of a low magnesium. Her ECG was unremarkable. Head CT yesterday did not demonstrate any intracranial process. Objective: Vital Signs Temp Pulse Resp BP Pulse Ox 36.4 C 85 13 152/74 H 96 12/08/18 07:28 12/08/18 07:28 12/08/18 07:28 12/08/18 07:28 12/08/18 07:28 Laboratory Results 12/07/18 04:54 12/07/18 12/08/18 12/09/18 05:59 05:59 05:59 Intake Total 200 200 Output Total 1700 2900 Balance -1500 -2700 PT 11.9 SEC (12.0-15.0) L 12/06/18 13:40 INR 0.91 (0.83-1.16) 12/06/18 13:40 Physical Exam - Physical Exam General Appearance: WD/WN, alert, no apparent distress EENT: PERRL/EOMI, normal ENT inspection, pharynx normal, TMs normal Neck: non-tender, full range of motion, supple, normal inspection Respiratory: chest non-tender, lungs clear, normal breath sounds Cardiac/Chest: normal peripheral pulses, regular rate, rhythm Abdomen: normal bowel sounds, non-tender, soft Pelvic Exam: deferred Rectal: deferred Back: Normal inspection Skin: normal color, warm/dry Extremities: normal inspection Neuro/Psych: alert, normal mood/affect ICD10 Worksheet Patient Problems: Problems Problem Status Onset Hyperglycemia Acute Altered mental status Acute Pyuria Acute Dysuria Acute Urinary incontinence Acute Vomiting Acute Diarrhea Acute CVA (cerebral vascular accident) Acute
[2018-12-08] MEDS: INSULIN LISPRO 100 UNIT/ML SC SCH ×4 (08:34→22:28)
[2018-12-08] MEDS: INSULIN REGULAR HUMAN IH SCH ×2 (08:36→18:29)
[2018-12-08] MEDS ORDERED: MAGNESIUM SULF 1 GM/DEXTROSE 100 ML IV ONE (09:15)
--- NOTE | 2018-12-08 09:47 | NEUROPROG ---
Assessment: the patient has clinical stroke with negative CT and mildly worse verbal expression today. Continue the rehab process and will start aspirin. Will sign off and please call for any questions Objective: Vital Signs Temp Pulse Resp BP Pulse Ox 36.4 C 85 13 152/74 H 96 12/08/18 07:28 12/08/18 07:28 12/08/18 07:28 12/08/18 07:28 12/08/18 07:28 Laboratory Results 12/07/18 04:54 12/07/18 12/08/18 12/09/18 05:59 05:59 05:59 Intake Total 200 200 Output Total 1700 2900 Balance -1500 -2700 PT 11.9 SEC (12.0-15.0) L 12/06/18 13:40 INR 0.91 (0.83-1.16) 12/06/18 13:40 Allergies/Adverse Reactions: codeine [Codeine] Allergy (Verified 04/13/18 07:44) Pt unsure of reaction fluorescein Allergy (Verified 04/13/18 07:44) Pt reports eye swelling papaya Allergy (Verified 04/13/18 07:44) Pt reports anaphylaxis CUMIN Allergy (Uncoded 04/13/18 07:44) Pt repors Anaphylaxis PETROS Allergy (Uncoded 04/13/18 07:44) Pt reports Anaphylaxis NUTS Allergy (Uncoded 04/13/18 07:44) Pt reports Anaphylaxis
--- NOTE | 2018-12-08 12:08 | HOSPPROG ---
Hospitalist Progress Note Assessment/Plan: CVA (cerebral vascular accident) (Acute) - s/p IV TpA in ED at 1400 on 12/06. -Persistent dysarthria, no other focal neurologic deficits. -ICU s/p TpA, repeat CT at 24hrs negative -Neuro following -Was on 325mg of ASA at home, likely needs Plavix, awaiting Neuro reccs. -cont statin, LDL 58 -BP support -TTE unremarkable -no Afib on telemetry, see below -PT/OT/speech Hypertension - cont home lisinopril -permissive HTN initially, now will optimize therapy. She may benefit from increasing her Lisinopril. She has had some variability with her readings. If elevated tomorrow, would increase Lisinopril to 30mg daily IDDDM -A1C7.6 -Hyperglycemia while in the hospita. We discussed increasing her Tresiba today but she reports recent mild hypoglycemia on her current regimen. She does not want this regimen changed at this time -cont SSI -hold metformin given contrast with CTA Complete Heart block on 12/07 a.m -Etiology unclear, likely vagal -Cards consult -Telemetry -There has been no recurrence. Cont Telemetry while inpatient. On d/c she needs a Zio monitor for 2 weeks, pending results, Cards will consider need for LINQ Dementia Pancreatic mass Full code Dispo - ok to med surg. May need SNF/rehab Subjective: no cp or sob. Some confusion and difficulty with speech Objective: Vital Signs Temp Pulse Resp BP Pulse Ox 36.4 C 85 13 152/74 H 96 12/08/18 07:28 12/08/18 07:28 12/08/18 07:28 12/08/18 07:28 12/08/18 07:28 Laboratory Results 12/07/18 04:54 12/07/18 12/08/18 12/09/18 05:59 05:59 05:59 Intake Total 200 200 Output Total 1700 2900 Balance -1500 -2700 PT 11.9 SEC (12.0-15.0) L 12/06/18 13:40 INR 0.91 (0.83-1.16) 12/06/18 13:40 - Physical Exam Constitutional: no apparent distress Eyes: PERRL, EOMI Ears, Nose, Mouth, Throat: moist mucous membranes, hearing normal, ears appear normal, no oral mucosal ulcers Cardiovascular: regular rate and rhythym, no murmur, rub, or gallop Respiratory: no respiratory distress, no rales or rhonchi, clear to auscultation Gastrointestinal: normoactive bowel sounds Skin: warm Neurologic: No AAOx3 Psychiatric: encephalopathic Lymph, Heme, Immunologic: No petechiae ICD10 Worksheet Patient Problems: Problems Problem Status Onset CVA (cerebral vascular accident) Acute Altered mental status Acute Diarrhea Acute Dysuria Acute Hyperglycemia Acute Pyuria Acute Urinary incontinence Acute Vomiting Acute
--- NOTE | 2018-12-08 12:34 | PDINTPN ---
[employer] Apprentice Progress Note Assessment/Plan: 78 F admitted 12/06 with acute onset of word finding difficulty and presumed CVA. Treated with TPA without significant complications. Hx HTN * CVA following stroke protocol. Normal echo and bubble. * CHB- nonsustained and brief but symptomatic. Could have been vagal episode and no recurrence. No further N/V as well. Probable Zio patch for outpatient monitoring. * HTN- avoid jeannie blocking agents. Started hydralazine prn SBP>160 * DM- insulin per hospitalist team * OK for floor with monitoring 12/08/18 12:32 Subjective: stable overnight without arrythmia. Mild somnolence this am. Objective: Vital Signs Temp Pulse Resp BP Pulse Ox 36.4 C 85 13 152/74 H 96 12/08/18 07:28 12/08/18 07:28 12/08/18 07:28 12/08/18 07:28 12/08/18 07:28 Laboratory Results 12/07/18 04:54 12/07/18 12/08/18 12/09/18 05:59 05:59 05:59 Intake Total 200 200 Output Total 1700 2900 Balance -1500 -2700 PT 11.9 SEC (12.0-15.0) L 12/06/18 13:40 INR 0.91 (0.83-1.16) 12/06/18 13:40 Physical Exam - Physical Exam General Appearance: alert, no apparent distress EENT: PERRL/EOMI Neck: supple, No lymphadenopathy (R), No lymphadenopathy (L) Respiratory: lungs clear, normal breath sounds, No respiratory distress, No accessory muscle use Cardiac/Chest: regular rate, rhythm, No edema, No JVD Abdomen: normal bowel sounds, non-tender, soft, No distended Skin: normal color, warm/dry, No cyanosis Lymphatic: no adenopathy Extremities: No pedal edema Neuro/Psych: alert, normal mood/affect, oriented x 3 ICD10 Worksheet Patient Problems: Problems Problem Status Onset CVA (cerebral vascular accident) Acute Altered mental status Acute Diarrhea Acute Dysuria Acute Hyperglycemia Acute Pyuria Acute Urinary incontinence Acute Vomiting Acute
[2018-12-08] MEDS: CLOPIDOGREL BISULFATE 75 MG TAB PO SCH (12:42)
[2018-12-08] MEDS: INSULIN DEGLUDEC 18 UNIT SQ SCH (18:27)
[2018-12-08] MEDS: ATORVASTATIN CALCIUM 40 MG TAB PO SCH (21:08)
[2018-12-08] MEDS: LISINOPRIL 20 MG TAB PO SCH (21:08)
[2018-12-09] MEDS ORDERED: MAGNESIUM SULF 1 GM/DEXTROSE 100 ML IV ONE (07:27)
[2018-12-09] MEDS: INSULIN LISPRO 100 UNIT/ML SC SCH ×4 (08:02→20:59)
[2018-12-09] MEDS: INSULIN REGULAR HUMAN IH SCH ×2 (08:04→17:54)
[2018-12-09] MEDS: CLOPIDOGREL BISULFATE 75 MG TAB PO SCH (08:05)
--- NOTE | 2018-12-09 08:30 | CPEKG ---
Test Reason : OPEN Blood Pressure : / mmHG Vent. Rate : 078 BPM Atrial Rate : 079 BPM P-R Int : 182 ms QRS Dur : 083 ms QT Int : 385 ms P-R-T Axes : 086 029 056 degrees QTc Int : 439 ms Sinus rhythm Confirmed by Wallace Espino ([id number]) on 12/09/2018 8:29:44 AM Referred By: Luzma Barillas Confirmed By:Wallace Espino
[2018-12-09] MEDS: metFORMIN HCL 500 MG TAB PO SCH ×2 (10:36→18:11)
--- NOTE | 2018-12-09 11:48 | ASMTCMCOM ---
CM Note CM Note Notes: CM spoke with PT/OT who are recommending SNF as of today. She spoke with pt and family who prefer [facility]. CM initiated SNF referral as she will likely need Insurance Authorization. CM to follow. Plan: [facility] pending acceptance and insurance auth Date Signed: 12/09/2018 11:47 AM Electronically Signed By:MARII Davalos
--- NOTE | 2018-12-09 13:09 | HOSPPROG ---
Hospitalist Progress Note Assessment/Plan: 78yo F with diabetes, HTN here with expressive aphasia consistent with stroke now s/p tpa. Course complicated by transient complete heart block. #Acute ischemic CVA: s/p TPA with repeat head CT at 24hrs negative - Changed full dose aspirin to plavix 75mg daily - Continue statin (LDL 58) - Neurology signed off - PT/OT/CIVIL LITIGATION ATTORNEY now recommending SNF #Complete heart block: One episode, likely vagal. - Cardiology consulted - Will dc with Zio monitor for 2 weeks. Pending results, consider LINQ #HTN: BP at goal<140 - Continue lisinopril 20mg daily #IDDM: A1c 7.6% - Hyperglycemic but patient not wanting to change her regimen d/t concerns for hypoglycemia - Restart metformin (held with contrast) - Continue SSI #Dementia: She has home care takers. #Pancreatic mass Code: full Dispo: Remain inpatient, unsafe for dc. Plan for SNF, case management working with family on this. Subjective: No change in aphasia today. Wanting to go home. No new symptoms. Objective: Vital Signs Temp Pulse Resp BP Pulse Ox 36.4 C 72 20 133/55 H 96 12/09/18 11:57 12/09/18 11:57 12/09/18 11:57 12/09/18 07:06 12/09/18 11:57 Laboratory Results 12/07/18 04:54 12/08/18 12/09/18 12/10/18 05:59 05:59 05:59 Intake Total 200 500 250 Output Total 2900 500 Balance -2700 0 250 PT 11.9 SEC (12.0-15.0) L 12/06/18 13:40 INR 0.91 (0.83-1.16) 12/06/18 13:40 - Physical Exam Constitutional: no apparent distress, appears nourished, not in pain Eyes: PERRL, anicteric sclera, EOMI Ears, Nose, Mouth, Throat: moist mucous membranes, hearing normal, ears appear normal, no oral mucosal ulcers Cardiovascular: regular rate and rhythym, no murmur, rub, or gallop, No edema Respiratory: no respiratory distress, no rales or rhonchi, clear to auscultation Gastrointestinal: normoactive bowel sounds, soft, non-tender abdomen, no palpable masses Genitourinary: no bladder fullness, no bladder tenderness, no renal bruits Skin: no rashes or abrasions, no fluctuance, no induration Musculoskeletal: full muscle strength, no muscle tenderness, normal joint ROM Neurologic: facial droop, other (expressive aphasia) ICD10 Worksheet Patient Problems: Problems Problem Status Onset CVA (cerebral vascular accident) Acute Altered mental status Acute Diarrhea Acute Dysuria Acute Hyperglycemia Acute Pyuria Acute Urinary incontinence Acute Vomiting Acute
[2018-12-09] MEDS: INSULIN DEGLUDEC 18 UNIT SQ SCH (17:54)
[2018-12-09] MEDS ORDERED: INSULIN DEGLUDEC 18 UNIT SQ SCH ×2 (18:15→18:25)
[2018-12-09] MEDS: ATORVASTATIN CALCIUM 40 MG TAB PO SCH (20:26)
[2018-12-09] MEDS: LISINOPRIL 20 MG TAB PO SCH (20:27)
[2018-12-10] MEDS ORDERED: MAGNESIUM SULF 1 GM/DEXTROSE 100 ML IV ONE (08:01)
[2018-12-10] MEDS: metFORMIN HCL 500 MG TAB PO SCH ×2 (08:26→17:15)
[2018-12-10] MEDS: CLOPIDOGREL BISULFATE 75 MG TAB PO SCH (08:26)
[2018-12-10] MEDS: INSULIN REGULAR HUMAN IH SCH ×2 (08:27→17:19)
[2018-12-10] MEDS: INSULIN LISPRO 100 UNIT/ML SC SCH ×3 (08:27→17:14)
--- NOTE | 2018-12-10 13:45 | ASMTCMCOM ---
CM Note CM Note Notes: Pt and family confirm the SNF choice is still [facility] this afternoon after pt former spouse Luis wanted some information and time to consider all SNF options. [facility] did already start the [employer] insurance auth yesterday. Updates sent to [facility] today in [employer]. D/c plan of care: [facility] SNF when medically stable and insurance approves Date Signed: 12/10/2018 01:44 PM Electronically Signed By:MARTHA Dobbins
--- NOTE | 2018-12-10 15:42 | HOSPPROG ---
Hospitalist Progress Note Assessment/Plan: 78yo F with diabetes, HTN here with expressive aphasia consistent with stroke now s/p tpa. Course complicated by transient complete heart block. #Acute ischemic CVA: s/p TPA with repeat head CT at 24hrs negative - Changed full dose aspirin to plavix 75mg daily - Continue statin (LDL 58) - Neurology signed off - PT/OT/TH[employer] INSTRUCTOR recommending SNF, CM aware #Complete heart block: One episode, likely vagal. - Cardiology consulted - Will dc with Zio monitor for 2 weeks. Pending results, consider LINQ #HTN: BP at goal<140 - Continue lisinopril 20mg daily #IDDM: A1c 7.6%. BG elevated (both fasting and meal) - Increase tresiba to 20u daily from 18 - Increase meal time lispro from 8u bid to tid - Increase SSI - Continue metformin #Acute metabolic encephalopathy: D/t stroke. Not back to baseline per family. #Dementia: She has home care takers. #Pancreatic mass Code: full Dispo: Remain inpatient, unsafe for dc back to prior living condition. Plan for SNF, case management working with family on this. Subjective: No new complaints. Speech about the same. Objective: Vital Signs Temp Pulse Resp BP Pulse Ox 37.1 C 77 15 116/54 L 96 12/10/18 11:50 12/10/18 11:50 12/10/18 11:50 12/10/18 11:50 12/10/18 11:50 Laboratory Results 12/07/18 04:54 12/09/18 12/10/18 12/11/18 05:59 05:59 05:59 Intake Total 500 650 Output Total 500 250 Balance 0 650 -250 PT 11.9 SEC (12.0-15.0) L 12/06/18 13:40 INR 0.91 (0.83-1.16) 12/06/18 13:40 - Physical Exam Constitutional: no apparent distress, appears nourished, not in pain Eyes: PERRL, anicteric sclera, EOMI Ears, Nose, Mouth, Throat: moist mucous membranes, hearing normal, ears appear normal, no oral mucosal ulcers Cardiovascular: regular rate and rhythym, no murmur, rub, or gallop Respiratory: no respiratory distress, no rales or rhonchi, clear to auscultation Gastrointestinal: normoactive bowel sounds, soft, non-tender abdomen, no palpable masses Genitourinary: no bladder fullness, no bladder tenderness, no renal bruits Skin: no rashes or abrasions, no fluctuance, no induration Musculoskeletal: generalized weakness Neurologic: facial droop, other (alert, dysarthric) Psychiatric: encephalopathic ICD10 Worksheet Patient Problems: Problems Problem Status Onset CVA (cerebral vascular accident) Acute Altered mental status Acute Diarrhea Acute Dysuria Acute Hyperglycemia Acute Pyuria Acute Urinary incontinence Acute Vomiting Acute
[2018-12-10] MEDS ORDERED: Insulin Degludec [Tresiba Flextouch U-100] 20 UNIT SQ SCH (15:48)
[2018-12-10] MEDS: ATORVASTATIN CALCIUM 40 MG TAB PO SCH (21:08)
[2018-12-10] MEDS: LISINOPRIL 20 MG TAB PO SCH (21:08)
[2018-12-11] MEDS: INSULIN LISPRO 100 UNIT/ML SC SCH ×2 (10:00→12:25)
[2018-12-11] MEDS: CLOPIDOGREL BISULFATE 75 MG TAB PO SCH (10:01)
[2018-12-11] MEDS: metFORMIN HCL 500 MG TAB PO SCH (10:01)
[2018-12-11] MEDS: INSULIN REGULAR HUMAN IH SCH (10:02)
--- NOTE | 2018-12-11 11:28 | PDIAF ---
- Diagnosis Code Status: Full Code - Medication Management Discharge Medications: electronically signed and located in the Home Medication List. PICC Care - Routine: N/A - Orders Services needed: Physical Therapy, Occupational Therapy, Speech Language Pathologist Isolation Type: None Diet Texture: Regular Texture Diet, Thin Liquids, Meds Whole w/Liquids Additional Instructions: Here are your medication changes: 1. Stopped aspirin 325mg 2. Started plavix 75mg daily 3. Increased Tresiba from 16 units to 20 units daily 4. Continue your Afrezza and sliding scale insulin with meals. The cardiology team is setting you up with a Zio patch to monitor your heart rhythm over the next 2 weeks. They would like to see you at the [facility] after completion of wearing this device. Dr Kirk would like you to see him in 4 weeks or so in his neurology clinic. - Follow Up Care Current Providers and Referrals: NONE *PRIMARY CARE P,. [Primary Care Provider] - As per Instructions Stu Kirk MD [Medical Doctor] - (follow up 4 weeks after discharge)
--- NOTE | 2018-12-11 11:29 | PDDCSUM ---
Discharge Summary Discharge Summary: Date of Admission: 12/06/2018 Date of Discharge: 12/11/2018 Consultants: neurology, cardiology Studies: CTA head/neck, CT head, TTE Discharge Diagnoses: 1. Acute ischemic CVA s/p TPA 2. Transient high grade AV block, likely vagal mediated and now resolved 3. Insulin dependent diabetes (A1c 7.6%) 4. Hypertension 5. Acute metabolic encephalopathy, resolved 6. Mild dementia 7. Pancreatic mass of unclear etiology/significance Brief Hospital Course: 78yo F with mild dementia, diabetes, HTN presented with acute onset word finding difficulty and facial droop. A non-contrasted head CT was negative for hemorrhage. CTA of head/neck was negative for thrombus or significant atherosclerosis. Clinically she had evidence of a stroke with right facial droop , expressive aphasia, dysarthria, and mild RUE weakness. She did receive TPA. Repeat head imaging did not demonstrate any intracranial hemorrhage. Neurology was consulted. She was switched from full dose aspirin to plavix 75mg daily. Her stroke was felt to be due to either embolic phenomenon (although no afib on telemetry or source of emboli on CTA) or small vessel disease. Our therapy services recommended correction facility which patient was agreeable and she was discharged to [facility]. She had a single episode of high grade AV block noted during episode of nausea and vomiting. Cardiology was consulted. This was felt to be vagally mediated. She had no recurrence. She was discharged with a Zio patch and will follow up in cardiology clinic. Her blood sugars remained slightly elevated. We increased her long-acting insulin and continued her inhaled regular insulin and sliding scale with meals. Medications: Please refer to EMR for complete list. We made the following changes: 1. Stopped aspirin 325mg 2. Started plavix 75mg daily 3. Increased Tresiba from 16 units to 20 units daily Follow Up Plan: 1. Cardiology clinic after completion of wearing Zio patch 2. Dr Kirk in neurology clinic in [address] Tony as scheduled for ongoing diabetes management Physical Exam: Vitals and telemetry reviewed, no pauses or bradyarrythmias. Alert and oriented, expressive aphasia and dysarthria, right eye ptosis and facial droop, very minor RUE weakness, otherwise preserved neurologic exam. RRR , lungs clear, abdomen soft and nt, no rashes, no edema.
--- NOTE | 2018-12-11 11:32 | ASMTLACE ---
LACE Length of stay for Answers: 4-6 days current admission Acuity / Level of Answers: Yes Care: Did the patient have an inpatient admission? Comorbidities - select Answers: Cerebrovascular disease all that apply (CVA, TIA, aneurysms, vasc ular dementia) Diabetes (uncontrolled or controlled) Other Notes: HTN # of Emergency department Answers: 1-2 visits in the last 6 months Score: 11 Date Signed: 12/11/2018 11:31 AM Electronically Signed By:MARTHA Dobbins
[2018-12-11 11:41] VITALS: BP 115/61
--- NOTE | 2018-12-11 12:28 | ASMTCMCOM ---
CM Note CM Note Notes: [facility] has insurance approval and pt is medically stable for d/c. Orders sent in Allscripts. Pt ex- Luis to transport. CHRIST Tapia to call report. Date Signed: 12/11/2018 12:28 PM Electronically Signed By:MARTHA Dobbins
--- NOTE | 2018-12-11 14:23 | ASDISCHSUM ---
Discharge Information Plan Status:SNF Medically Cleared to Leave: Discharge Date:12/11/2018 01:53 PM CM D/C Disposition: ADT D/C Disposition:Fpc Facility Projected Discharge Date:12/09/2018 11:00 AM Transportation at D/C: Discharge Delay Reason: Follow-Up Date:12/09/2018 11:00 AM Discharge Slot: Final Diagnosis: Placement Information Referral Type:*Home Health Care Services Referral ID:[id number] Provider Name: Address 1: Phone Number: Address 2: Fax Number: City: Selection Factors: State: Referral Type:*Long Term/SNF Referral ID:[id number] Provider Name:[facility] Address 1:[address] [place] [address] Address 2: City:[place] Selection Factors: State:[place] Patient Contact Information Contact Name:CLEMENT Relationship:Other Address: Home Phone: City: Alternate Phone: State/Zip Code: Email: Financial Information Financial Class:Medicare Advantage Plans Primary Plan Desc:[employer] Primary Plan Number:[id number] Secondary Plan Desc: Secondary Plan Number: Assessment Information LACE LACE Length of stay for Answers: 4-6 days current admission Acuity / Level of Answers: Yes Care: Did the patient have an inpatient admission? Comorbidities - select Answers: Cerebrovascular disease all that apply (CVA, TIA, aneurysms, vasc ular dementia) Diabetes (uncontrolled or controlled) Other Notes: HTN # of Emergency department Answers: 1-2 visits in the last 6 months Score: 11 Date Signed: 12/11/2018 11:31 AM Electronically Signed By:MARTHA Dobbins [facility] CM Progress Note CM Note CM Note Notes: Patient admitted after experiencing speech difficulties. She was originally dx w CVA (and given tPa); however, she also experienced a transient episode of AV block this morning. Patient is normally independent, she lives at [place]. She has a caregiver named Angela who provides 1-3 hrs care/daily. She also has home PT with [facility]. Her Luis is available and supportive. DYE CAN OPERATOR has seen and recommends home care. PT/OT evals to follow. Case Management will follow. Date Signed: 12/07/2018 01:39 PM Electronically Signed By:Yarelis Myers RN [facility] Progress Note CM Note CM Note Notes: CM spoke with PT/OT who are recommending SNF as of today. She spoke with pt and family who prefer [facility]. CM initiated SNF referral as she will likely need Insurance Authorization. CM to follow. Plan: [facility] pending acceptance and insurance auth Date Signed: 12/09/2018 11:47 AM Electronically Signed By:MARII Davalos [facility] Progress Note CM Note CM Note Notes: Pt and family confirm the SNF choice is still [facility] this afternoon after pt former spouse Luis wanted some information and time to consider all SNF options. [facility] did already start the [employer] insurance auth yesterday. Updates sent to [facility] today in Allscripts. D/c plan of care: [facility] when medically stable and insurance approves Date Signed: 12/10/2018 01:44 PM Electronically Signed By:MARTHA Dobbins [facility] CM Progress Note CM Note CM Note Notes: [facility] has insurance approval and pt is medically stable for d/c. Orders sent in Allscripts. Pt ex- Luis to transport. CHRIST Tapia to call report. Date Signed: 12/11/2018 12:28 PM Electronically Signed By:MARTHA Dobbins Intervention Information
[2018-12-11] MEDS ORDERED: INSULIN REGULAR HUMAN IH SCH (18:00)
== END 2018-12-11 13:53 | DRG 61 ==
LOC: EDUNIT# → F2N 15:47 → F3N 12-09 13:55
PROVIDERS: ADMIT Internal Medicine; ATTEND Internal Medicine
DX: I63.9 Cerebral infarction, unspecified (principal); G93.41 Metabolic encephalopathy; I44.2 Atrioventricular block, complete; E11.65 Type 2 diabetes mellitus with hyperglycemia; I10 Essential (primary) hypertension; F03.90 Unspecified dementia, unspecified severity, without behavioral disturbance, psychotic disturbance, mood disturbance, and anxiety; K86.9 Disease of pancreas, unspecified; R47.01 Aphasia; R47.1 Dysarthria and anarthria; R29.810 Facial weakness
CPT/HCPCS: 82435-PO; 82565-PO; 82947-PO; 84132-PO; 84295-PO; 84484-ER; 84520-PO; 85014-ER; 92507-GN; 92523-GN; 92610-GN; 96374; 97116-GP; 97161-GP; 97166-GO; 97530-GP; 97535-GO; J0360; J0461; J1815; J2997; J3475; Q9967